=== PATIENT | female | born 1940 | race American Indian/Alaskan Native ===

== ENCOUNTER 2018-10-01 18:03 | Emergency (ER) | payer MEDICARE ==
[2018-10-01] MEDS ORDERED: Acetaminophen/HYDROcodone 325-5 MG Tab PO ONE (18:04)
[2018-10-01] MEDS ORDERED: Sodium Chloride 0.9% 500 ML IV ONE (18:24)
[2018-10-01] MEDS: Sodium Chloride 0.9% 10 ML Syringe FLUSH PRN ×4 (18:48→20:51)
[2018-10-01] MEDS ORDERED: Iopamidol 755 Mg/ML 75 ML Bottle IV ONE (19:04)
[2018-10-01] MEDS ORDERED: Ondansetron 4 MG/2 ML SDV IVPUSH ONE (20:28)
[2018-10-01] MEDS ORDERED: Nitrofurantoin Monohydrate/Macrocrystalline 100 MG Cap PO ONE (20:29)
[2018-10-01] MEDS ORDERED: Morphine 2 MG/ML Syringe ONE (20:38)
[2018-10-01] MEDS: Morphine 2 MG/ML Syringe IVPUSH PRN ×2 (20:42→20:50)
--- NOTE | 2018-10-01 20:50 | EDM.PDOC ---
ED HPI GENERAL MEDICAL PROBLEM - General Chief Complaint: Back Pain or Injury Stated Complaint: FALL Time Seen by Provider: 10/01/18 18:20 Source of Information: Reports: Patient History Limitations: Reports: No Limitations - History of Present Illness INITIAL COMMENTS - FREE TEXT/NARRATIVE: 78-year-old female who reports that she was standing on a chair to turn on a fan and when she stepped off she tried to avoid hitting her cat and fell landing on her right buttock and back. She is unaware of whether she hit her head or not area she has no headache. She does have some posterior neck pain but this is nature. Her primary pain is in her buttock and lower back area. She has no abdominal pain. She has no trouble breathing. She felt well prior to this occurring. There was no weakness or dizziness. There was no loss of consciousness. She does report the pain in her buttock is a constant aching pain she rates as an 8-10/10 the pain in her lower lumbar area on the right side and the lower midline back. There are sharp spikes in the pain with movement or palpation. There is no arm or leg weakness. There are no other associated signs or symptoms. There are no other modifying factors. Onset: Today (5:30 PM) Duration: Constant Location: Reports: Back (Right buttock and pelvis as well) Quality: Reports: Ache, Sharp Severity: Moderate (to severe) Improves with: Reports: None Worsens with: Reports: Movement Associated Symptoms: Reports: No Other Symptoms Treatments [employer]: Reports: Other (see below) (Nothing here) right butt Pain Score (Numeric/FACES): 10 - Related Data Allergies Allergy/AdvReac Type Severity Reaction Status Date / Time No Known Allergies Allergy Verified 10/01/18 19:49 Home Meds: Home Meds Aspirin [Grey Chewable Aspirin] 81 mg PO DAILY 02/12/13 [History] Propranolol [Inderal LA] 120 mg PO DAILY 02/12/13 [History] buPROPion [Wellbutrin] 75 mg PO BID PRN 02/12/13 [History] hydroCHLOROthiazide [Hydrochlorothiazide] 25 mg PO DAILY 02/12/13 [History] metFORMIN [Glucophage] 500 mg PO BIDM 02/12/13 [History] Calcium Citrate/Vitamin D3 [[place] Calcium D (200 MG Calcium)] 1 tab PO BID 10/22 [History] Clobetasol [Clobetasol 0.05%] 30 gm .XX DAILY PRN 06/15/13 [History] Dibucaine [Nupercainal 1% Oint] 30 gm TP ASDIRECTED PRN 06/15/13 [History] Multivitamin [Multivitamins] 1 each PO DAILY 06/15/13 [History] Ondansetron [Zofran ODT] 4 mg PO Q6H PRN 06/15/13 [History] Polyethylene Glycol 3350 [Miralax] 17 gm PO ASDIRECTED PRN 06/15/13 [History] Diclofenac Sodium [Voltaren] 4 gm TOP QID 12/05/15 [History] Nitrofurantoin Monohyd/M-Cryst [Macrobid 100 mg Capsule] 100 mg PO BID 7 Days # 14 capsule 10/01/18 [Rx] Warfarin Sodium [Jantoven] 7.5 mg PO MOWEFR 10/01/18 [History] Warfarin Sodium [Jantoven] 10 mg PO SUTUTHSA 10/01/18 [History] Past Medical History HEENT History: Reports: Cataract Cardiovascular History: Reports: High Cholesterol, Hypertension, Other (See Below) Other Cardiovascular History: SENILE NUCLEAR SCLEROSIS Respiratory History: Reports: Other (See Below) Other Respiratory History: LUNG CANCER, ALLERGIC RHINITIS Gastrointestinal History: Reports: GERD, Other (See Below) Other Gastrointestinal History: IRWIN'S ESOPHAGUS Genitourinary History: Reports: Urinary Incontinence Musculoskeletal History: Reports: Other (See Below) Other Musculoskeletal History: CHRONIC PAIN SYNDROME, 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 Psychiatric History: Reports: Anxiety, Depression Endocrine/Metabolic History: Reports: Diabetes, Type II Hematologic History: Reports: Anemia Oncologic (Cancer) History: Reports: Lung Other Oncologic History: RIGHT LUNG REMOVAL - Infectious Disease History Infectious Disease History: Reports: Measles, Mumps - Past Surgical History Respiratory Surgical History: Reports: Pneumonectomy (Right pneumonectomy) GI Surgical History: Reports: Colonoscopy, EGD, Hernia, Abdominal, Sarah Fundoplication Female Surgical History: Reports: Breast Biopsy, Hysterectomy, Salpingo- Oophorectomy Oncologic Surgical History: Reports: Biopsy of Breast Social & Family History - Family History Family Medical History: Noncontributory - Tobacco Use Smoking Status *Q: Current Every Day Smoker Years of Tobacco use: 60 Packs/Tins Daily: 1 - Alcohol Use Alcohol Use History: No - Living Situation & Occupation Occupation: Retired Social History Comment: Lives by herself. ED ROS GENERAL - Review of Systems Review Of Systems: See Below Constitutional: Reports: No Symptoms HEENT: Reports: No Symptoms Respiratory: Reports: Shortness of Breath (Chronic), Cough (Chronic) Cardiovascular: Reports: No Symptoms GI/Abdominal: Reports: No Symptoms : Reports: No Symptoms, Incontinence (But this is chronic) Musculoskeletal: Reports: Back Pain, Other (Pelvis and right buttock pain) Skin: Reports: No Symptoms Neurological: Reports: No Symptoms Hematologic/Lymphatic: Reports: Easy Bruising (On chronic anticoagulation with Coumadin) Immunologic: Reports: Pollen Allergy ED EXAM,LOWER BACK PAIN/INJURY - Physical Exam Exam: See Below Exam Limited By: No Limitations General Appearance: Alert, WD/WN, Moderate Distress Eye Exam: Bilateral Eye: EOMI, Normal Inspection, PERRL Ears: Normal External Exam Nose: Normal Inspection, Normal Mucosa, No Blood Throat/Mouth: Normal Inspection, Normal Oropharynx, Normal Voice, No Airway Compromise Head: Atraumatic Neck: Normal Inspection, Full Range of Motion, Tender Midline (Mild tenderness in the midline) Respiratory/Chest: No Respiratory Distress, No Accessory Muscle Use, Chest Non- Tender Cardiovascular: Normal Peripheral Pulses, Regular Rate, Rhythm, No JVD GI/Abdominal: Normal Bowel Sounds, Soft, Non-Tender, No Mass Back Exam: Normal Inspection, Vertebral Tenderness (In the lower lumbar area. She also has pain over her right buttock area) Extremities: Normal Inspection, Normal Range of Motion, Non-Tender, No Pedal Edema, Normal Capillary Refill Neurological: Alert, Normal Mood/Affect, Normal Dorsiflexion, CN II-XII Intact, Normal Plantar Flexion, No Motor/Sensory Deficits Skin Exam: Warm, Dry, Intact, Normal Color, No Rash Course - Vital Signs Last Recorded V/S: Last Vital Signs Temp 36.1 C 10/01/18 18:03 Pulse 77 10/01/18 18:03 Resp 18 10/01/18 18:03 BP 133/98 H 10/01/18 18:03 Pulse Ox 95 10/01/18 18:03 - Orders/Labs/Meds Orders: Active Orders 24 hr Category Date Time Status Abdomen Pelvis w Cont [CT] Stat Exams 10/01/18 18:18 Taken Cervical Spine wo Cont [CT] Stat Exams 10/01/18 18:18 Taken Chest 1V Frontal [CR] Stat Exams 10/01/18 18:18 Taken Head wo Cont [CT] Stat Exams 10/01/18 18:18 Taken Lumbar Spine wo Cont [CT] Stat Exams 10/01/18 18:18 Taken CULTURE URINE [RM] Stat Lab 10/01/18 20:18 Ordered Morphine Med 10/01/18 20:28 Active 2 mg IVPUSH Q5M PRN Sodium Chloride 0.9% [Saline Flush] Med 10/01/18 18:18 Active 10 ml FLUSH ASDIRECTED PRN Peripheral IV Insertion Adult [OM.PC] Routine Oth 10/01/18 18:18 Ordered Medication Orders Morphine Sulfate (Morphine) 2 mg IVPUSH Q5M PRN PRN Reason: Moderate to severe pain Sodium Chloride (Saline Flush) 10 ml FLUSH ASDIRECTED PRN PRN Reason: Keep Vein Open Last Admin: 10/01/18 18:48 Dose: 10 ml Labs: Laboratory Tests 10/01/18 10/01/18 10/01/18 Range/Units 18:35 18:35 18:35 WBC 8.3 (4.5-12.0) X10-3/uL RBC 3.89 (3.23-5.20) x10(6)uL Hgb 10.4 L (11.5-15.5) g/dL Hct 32.0 (30.0-51.3) % MCV 82.3 (80-96) fL MCH 26.9 L (27.7-33.6) pg MCHC 32.6 (32.2-35.4) g/dL RDW 17.6 H (11.5-15.5) % Plt Count 366 (125-369) X10(3)uL MPV 7.8 (7.4-10.4) fL Neut % (Auto) 68.8 (46-82) % Lymph % (Auto) 22.2 (13-37) % [place] % (Auto) 5.9 (4-12) % Eos % (Auto) 3 (1.0-5.0) % Baso % (Auto) 0 (0-2) % Neut # (Auto) 5.8 (1.6-8.3) # Lymph # (Auto) 1.8 (0.6-5.0) # [place] # (Auto) 0.5 (0.0-1.3) # Eos # (Auto) 0.2 (0.0-0.8) # Baso # (Auto) 0.0 (0.0-0.2) # PT 19.3 H (8.7-11.1) INR 2.00 H (0.89-1.13) Sodium 139 (135-145) mmol/L Potassium 3.8 (3.5-5.3) mmol/L Chloride 102 (100-110) mmol/L Carbon Dioxide 26 (21-32) mmol/L BUN 24 H (7-18) mg/dL Creatinine 0.9 (0.55-1.02) mg/dL Est Cr Clr Drug Dosing TNP Estimated GFR (MDRD) > 60 (>60) BUN/Creatinine Ratio 26.7 H (9-20) Glucose 95 (80-116) mg/dL Calcium 8.5 L (8.6-10.2) mg/dL Total Bilirubin 0.3 (0.1-1.3) mg/dL AST 21 (5-25) IU/L ALT 23 (12-36) U/L Alkaline Phosphatase 110 (56-112) IU/L Total Protein 6.8 (6.0-8.0) g/dL Albumin 3.8 (3.2-4.6) g/dL Globulin 3.0 g/dL Albumin/Globulin Ratio 1.3 Urine Color (YELLOW) Urine Appearance (CLEAR) Urine pH (5.0-6.5) Ur Specific [place] (1.010-1.025) Urine Protein (NEGATIVE) mg/dL Urine Glucose (UA) (NORMAL) mg/dL Urine Ketones (NEGATIVE) mg/dL Urine Occult Blood (NEGATIVE) Urine Nitrite (NEGATIVE) Urine Bilirubin (NEGATIVE) Urine Urobilinogen (NEGATIVE) mg/dL Ur Leukocyte Esterase (NEGATIVE) Urine RBC (0-5) Urine WBC (0-5) Ur Squamous Epith Cells (NS,R,O) Urine Bacteria (NS) 10/01/18 Range/Units 18:40 WBC (4.5-12.0) X10-3/uL RBC (3.23-5.20) x10(6)uL Hgb (11.5-15.5) g/dL Hct (30.0-51.3) % MCV (80-96) fL MCH (27.7-33.6) pg MCHC (32.2-35.4) g/dL RDW (11.5-15.5) % Plt Count (125-369) X10(3)uL MPV (7.4-10.4) fL Neut % (Auto) (46-82) % Lymph % (Auto) (13-37) % [place] % (Auto) (4-12) % Eos % (Auto) (1.0-5.0) % Baso % (Auto) (0-2) % Neut # (Auto) (1.6-8.3) # Lymph # (Auto) (0.6-5.0) # [place] # (Auto) (0.0-1.3) # Eos # (Auto) (0.0-0.8) # Baso # (Auto) (0.0-0.2) # PT (8.7-11.1) INR (0.89-1.13) Sodium (135-145) mmol/L Potassium (3.5-5.3) mmol/L Chloride (100-110) mmol/L Carbon Dioxide (21-32) mmol/L BUN (7-18) mg/dL Creatinine (0.55-1.02) mg/dL Est Cr Clr Drug Dosing Estimated GFR (MDRD) (>60) BUN/Creatinine Ratio (9-20) Glucose (80-116) mg/dL Calcium (8.6-10.2) mg/dL Total Bilirubin (0.1-1.3) mg/dL AST (5-25) IU/L ALT (12-36) U/L Alkaline Phosphatase (56-112) IU/L Total Protein (6.0-8.0) g/dL Albumin (3.2-4.6) g/dL Globulin g/dL Albumin/Globulin Ratio Urine Color Yellow (YELLOW) Urine Appearance Slightly cloudy (CLEAR) Urine pH 5.0 (5.0-6.5) Ur Specific [place] 1.015 (1.010-1.025) Urine Protein Negative (NEGATIVE) mg/dL Urine Glucose (UA) Normal (NORMAL) mg/dL Urine Ketones Negative (NEGATIVE) mg/dL Urine Occult Blood Negative (NEGATIVE) Urine Nitrite Positive H (NEGATIVE) Urine Bilirubin Negative (NEGATIVE) Urine Urobilinogen Normal (NEGATIVE) mg/dL Ur Leukocyte Esterase Negative (NEGATIVE) Urine RBC 0-5 (0-5) Urine WBC 5-10 H (0-5) Ur Squamous Epith Cells Occasional (NS,R,O) Urine Bacteria Many H (NS) Meds: Medications Generic Name Dose Route Start Last Admin Trade Name Freq PRN Reason Stop Dose Admin Morphine Sulfate 2 mg 10/01/18 20:28 Morphine IVPUSH Q5M PRN Moderate to severe pain Sodium Chloride 10 ml 10/01/18 18:18 10/01/18 18:48 Saline Flush FLUSH 10 ml ASDIRECTED PRN Administration Keep Vein Open Discontinued Medications Generic Name Dose Route Start Last Admin Trade Name Freq PRN Reason Stop Dose Admin Sodium Chloride 500 mls @ 999 mls/hr 10/01/18 18:24 10/01/18 18:48 Normal Saline IV 10/01/18 18:54 999 mls/hr .BOLUS ONE Administration Iopamidol 75 ml 10/01/18 19:04 10/01/18 19:24 Isovue-370 (76%) IV 10/01/18 19:05 49 ml ONETIME ONE Administration Morphine Sulfate Confirm 10/01/18 20:38 Morphine Administered 10/01/18 20:39 Dose 2 mg .ROUTE .STK-MED ONE Nitrofurantoin Macrocrystals 100 mg 10/01/18 20:29 Macrobid PO 10/01/18 20:30 ONETIME ONE Ondansetron HCl 4 mg 10/01/18 20:28 Zofran IVPUSH 10/01/18 20:29 ONETIME ONE - Radiology Interpretation Free Text/Narrative:: CT of head showed no acute abnormality per the radiologist CT scan of cervical spine show no acute abnormalities per the radiologist CT scan of the abdomen and pelvis showed no acute abnormalities per the radiologist. Specifically there were no pelvic fractures or right hip fracture. There were some nodules in the left lower lung. CT scan of the lumbar spine showed a 50% L1 compression fracture that was age indeterminate per the radiologist. The patient has no pain with palpation over this area and she gives a history of a lumbar compression fracture which is probably this L1 compression fracture. Portal chest x-ray showed no acute abnormality. He is status post right pneumonectomy. This is per the radiologist. - Re-Assessments/Exams Free Text/Narrative Re-Assessment/Exam: 10/01/18 20:40: Patient is still in pain and would like something for pain at this point. The CTs Showed no evidence of acute fracture in her pelvis or right hip or lumbar spine. Her lab tests are reassuring. She does appear to have a urinary tract infection. The patient will be treated with doses of morphine and we will try to ambulate her with a walker (she has a walker and a wheelchair at home). The patient will also be given Macrobid 100 mg by mouth to begin treatment of a urine infection. She has remained vitally and neurologically stable in the emergency department. 10/01/18 21:15: After 2 doses of morphine, she is able to ambulate with assistance. She feels ready for discharge. I will plan on sending the patient home with a starter pack of hydrocodone that she can take for more severe pain. She can continue to take her Aleve. I am also placing the patient on Macrobid for UTI. She should use a walker at home for ambulation Departure - Departure Time of Disposition: 21:20 Disposition: Home, Self-Care 01 Condition: Good Clinical Impression: Contusion of lower back and pelvis, initial encounter, Long-term (current) use of anticoagulants, INR goal 2.0-3.0 Fall from chair Qualifiers: Encounter type: initial encounter Qualified Code(s): W07.XXXA - Fall from chair , initial encounter Contusion, buttock Qualifiers: Encounter type: initial encounter Qualified Code(s): S30.0XXA - Contusion of lower back and pelvis, initial encounter UTI (urinary tract infection) Qualifiers: Urinary tract infection type: site unspecified Hematuria presence: without hematuria Qualified Code(s): N39.0 - Urinary tract infection, site not specified - Discharge Information Prescriptions: Nitrofurantoin Monohyd/M-Cryst [Macrobid 100 mg Capsule] 100 mg PO BID 7 Days # 14 capsule Referrals: PCP,None [Primary Care Provider] - Forms: ED Department Discharge Additional Instructions: Your blood tests were reassuring. Your INR was 2.0. Your urine test showed some evidence of a urinary tract infection. The CT scan of your head, neck and abdomen and pelvis showed no acute fractures or bleeding or any other acute abnormalities. The CT scan of your lumbar spine showed a compression fracture of your first lumbar vertebra that is probably the old fracture that you were aware of. There did not appear to be any fracture in your hip or pelvis. Ambulate as tolerated with your walker. You may take Aleve as needed for your pain. Medication as prescribed for more severe pain (hydrocodone 5/325). I am also placing you on Macrobid to treat for a urinary tract infection. You should increase your fluid intake. Ambulate as tolerated with your walker. Back to the emergency department for abdominal pain, vomiting, fever, marked increase in your pain or any other concerning sign or symptom. - My Orders Last 24 Hours: My Active Orders 10/01/18 18:18 Abdomen Pelvis w Cont [CT] Stat Cervical Spine wo Cont [CT] Stat Chest 1V Frontal [CR] Stat Head wo Cont [CT] Stat Lumbar Spine wo Cont [CT] Stat Sodium Chloride 0.9% [Saline Flush] 10 ml FLUSH ASDIRECTED PRN Peripheral IV Insertion Adult [OM.PC] Routine 10/01/18 20:18 CULTURE URINE [RM] Stat 10/01/18 20:28 Morphine 2 mg IVPUSH Q5M PRN - Assessment/Plan Last 24 Hours: My Active Orders 10/01/18 18:18 Abdomen Pelvis w Cont [CT] Stat Cervical Spine wo Cont [CT] Stat Chest 1V Frontal [CR] Stat Head wo Cont [CT] Stat Lumbar Spine wo Cont [CT] Stat Sodium Chloride 0.9% [Saline Flush] 10 ml FLUSH ASDIRECTED PRN Peripheral IV Insertion Adult [OM.PC] Routine 10/01/18 20:18 CULTURE URINE [RM] Stat 10/01/18 20:28 Morphine 2 mg IVPUSH Q5M PRN
[2018-10-01 22:37] VITALS: BP 104/53
== END 2018-10-01 21:40 | disposition home or self-care (01) ==
LOC: FB.ED 18:03
DX: S30.0XXA Contusion of lower back and pelvis, initial encounter (principal); N39.0 Urinary tract infection, site not specified; W07.XXXA Fall from chair, initial encounter; Z79.01 Long term (current) use of anticoagulants
CPT/HCPCS: 36415; 51701; 70450; 71045; 72125; 72131; 74177; 80053; 81001; 85025; 85610; 87086; 87088; 87186; 96361; 96374; 96375; 99284; A9270; J2270; J2405; J7040; Q9967

== ENCOUNTER 2019-04-12 07:59 | Inpatient (IN) | payer MEDICARE ==
--- NOTE | 2019-04-12 08:20 | EDM.PDOC ---
ED HPI GENERAL MEDICAL PROBLEM - General Chief Complaint: General Stated Complaint: WEAKNESS Time Seen by Provider: 04/12/19 08:00 Source of Information: Reports: Patient, EMS, Old Records History Limitations: Reports: Physical Impairment - History of Present Illness INITIAL COMMENTS - FREE TEXT/NARRATIVE: Lucille comes into [facility] ED by EMS with sxs of progressive weakness over the past few days, black tarry stools, and some SOB. She lives alone, obtains health care from the [facility] system, and has not seen a HCP since last ED visit her on 10/01/18. At that time, she was evaluated for a fall, and spiculated lesions x 2 noted in L lower lung field. She has prior R total pneumonectomy for CA Lung. Her Hgb 10.4 has droppeed to 6.9 today. SFOB is pos. She will be TxM for blood transfusions and admitted, hospitalist notified. - Related Data Allergies Allergy/AdvReac Type Severity Reaction Status Date / Time No Known Allergies Allergy Verified 10/01/18 19:49 Home Meds: Home Meds Aspirin [Grey Chewable Aspirin] 81 mg PO DAILY 02/12/13 [History] Propranolol [Inderal LA] 120 mg PO DAILY 02/12/13 [History] hydroCHLOROthiazide [Hydrochlorothiazide] 25 mg PO DAILY 02/12/13 [History] metFORMIN [Glucophage] 500 mg PO DAILY 02/12/13 [History] Calcium Citrate/Vitamin D3 [[place] Calcium D (200 MG Calcium)] 1 tab PO BID 10/22 [History] Clobetasol [Clobetasol 0.05%] 30 gm .XX DAILY PRN 06/15/13 [History] Multivitamin [Multivitamins] 1 each PO DAILY 06/15/13 [History] Ondansetron [Zofran ODT] 4 mg PO Q6H PRN 06/15/13 [History] Diclofenac Sodium [Voltaren] 4 gm TOP QID 12/05/15 [History] Acetaminophen [Tylenol] 325 mg PO ASDIRECTED 10/01/18 [History] Naproxen Sodium [Aleve] 220 mg PO ASDIRECTED 10/01/18 [History] Nitrofurantoin Monohyd/M-Cryst [Macrobid 100 mg Capsule] 100 mg PO BID 7 Days # 14 capsule 10/01/18 [Rx] Warfarin Sodium [Jantoven] 7.5 mg PO MOWEFR 10/01/18 [History] Warfarin Sodium [Jantoven] 10 mg PO SUTUTHSA 10/01/18 [History] Past Medical History HEENT History: Reports: Cataract Cardiovascular History: Reports: Afib, High Cholesterol, Hypertension, Other ( See Below) Respiratory History: Reports: Other (See Below) Other Respiratory History: LUNG CANCER, ALLERGIC RHINITIS Gastrointestinal History: Reports: GERD, Other (See Below) Other Gastrointestinal History: IRWIN'S ESOPHAGUS Genitourinary History: Reports: Urinary Incontinence [employer] History: Reports: Musculoskeletal History: Reports: Other (See Below) Other Musculoskeletal History: CHRONIC PAIN SYNDROME, 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 Psychiatric History: Reports: Anxiety, Depression Endocrine/Metabolic History: Reports: Diabetes, Type II Other Endocrine/Metabolic History: DYSTHYMIC DISORDER Hematologic History: Reports: Anemia Immunologic History: Reports: None Oncologic (Cancer) History: Reports: Lung Other Oncologic History: RIGHT LUNG REMOVAL - Infectious Disease History Infectious Disease History: Reports: Measles, Mumps - Past Surgical History Respiratory Surgical History: Reports: Pneumonectomy (Right pneumonectomy) GI Surgical History: Reports: Colonoscopy, EGD, Hernia, Abdominal, Sarah Fundoplication Female Surgical History: Reports: Breast Biopsy, Hysterectomy, Salpingo- Oophorectomy Oncologic Surgical History: Reports: Biopsy of Breast Social & Family History - Family History Family Medical History: Noncontributory - Living Situation & Occupation Occupation: Retired ED ROS GENERAL - Review of Systems Review Of Systems: Unable To Obtain Reason Not Obtained: lethargy ED EXAM, GENERAL - Physical Exam Exam: See Below Exam Limited By: Physical Impairment (lethargy) General Appearance: WD/WN, Lethargic, Thin, Other (pallor) Eye Exam: Bilateral Eye: EOMI, Normal Inspection, PERRL Ears: Normal External Exam Nose: Normal Inspection, No Blood Throat/Mouth: No Airway Compromise, Other (edentulous) Head: Normocephalic Neck: Normal Inspection, Supple, Non-Tender Respiratory/Chest: No Respiratory Distress, Chest Non-Tender, Decreased Breath Sounds (R side absent; decreased L side), Prolonged Expiration Cardiovascular: Regular Rate, Rhythm, No Murmur GI/Abdominal: Normal Bowel Sounds, Soft, Non-Tender, No Organomegaly, No Distention, No Mass (Female) Exam: Deferred Rectal (Female) Exam: Deferred Back Exam: Normal Inspection Extremities: Pallor Neurological: CN II-XII Intact, No Motor/Sensory Deficits, Inattentive, Slow to Respond Psychiatric: Flat Affect Skin Exam: Intact, Ecchymosis, Pallor Lymphatic: No Adenopathy Course - Vital Signs Text/Narrative:: Initial assessment noted tarry stool, SFOB pos; Hgb 6.9 gm%, PT >100; case discussed with Hospitalist, and she will be admitted. I have ordered TxM 2 units of PRBC, Vit K 5 mg IV, and IV fluids. I am also aware of spiculated nodules in L lung that were detected on prior ED visit October 01, 2018 that remain present and require further assessment. Last Recorded V/S: Last Vital Signs Temp 36.4 C 04/12/19 10:04 Pulse 113 H 04/12/19 10:04 Resp 30 H 04/12/19 10:04 BP 120/68 04/12/19 10:04 Pulse Ox 100 04/12/19 10:04 - Orders/Labs/Meds Orders: Active Orders 24 hr Category Date Time Status Chest 1V Frontal [CR] Stat Exams 04/12/19 08:21 Taken PATIENT RETYPE [BBK] Stat Lab 04/12/19 09:45 Results RED BLOOD CELLS LP [BBK] Stat Lab 04/12/19 09:45 Results TYPE AND SCREEN [BBK] Stat Lab 04/12/19 09:45 Results Dextrose 5%-Lactated Ringers 1,000 ml Med 04/12/19 08:30 Active IV ASDIRECTED Sodium Chloride 0.9% [Normal Saline] 250 ml Med 04/12/19 09:30 Active IV ASDIRECTED Sodium Chloride 0.9% [Saline Flush] Med 04/12/19 08:21 Active 10 ml FLUSH ASDIRECTED PRN Peripheral IV Insertion Adult [OM.PC] Routine Oth 04/12/19 08:21 Ordered Transfuse PRBC [Transfuse Red Blood Cells] [COMM] Stat Oth 04/12/19 09:19 Ordered EKG 12 Lead [EK] Routine Ther 04/12/19 08:21 Stop Req Medication Orders Dextrose/Lactated Ringer's (Dextrose 5%-Lactated Ringers) 1,000 mls @ 500 mls/ hr IV ASDIRECTED CHUCK Last Admin: 04/12/19 08:40 Dose: 500 mls/hr Sodium Chloride (Normal Saline) 250 mls @ 100 mls/hr IV ASDIRECTED CHUCK Nicotine (Habitrol) 14 mg TRDERM Q24H CHUCK Sodium Chloride (Saline Flush) 10 ml FLUSH ASDIRECTED PRN PRN Reason: Keep Vein Open Labs: Laboratory Tests 04/12/19 04/12/19 04/12/19 Range/Units 08:45 08:45 08:45 WBC 12.5 H (4.5-12.0) X10-3/uL RBC 2.33 L (3.23-5.20) x10(6)uL Hgb 6.9 L* D (11.5-15.5) g/dL Hct 21.2 L* D (30.0-51.3) % MCV 90.8 (80-96) fL MCH 29.5 (27.7-33.6) pg MCHC 32.5 (32.2-35.4) g/dL RDW 15.1 (11.5-15.5) % Plt Count 505 H (125-369) X10(3)uL MPV 7.1 L (7.4-10.4) fL Add Manual Diff Yes Neutrophils % (Manual) 90 H (46-82) % Lymphocytes % (Manual) 10 L (13-37) % Macrocytosis Occasional PT (8.7-11.1) INR Sodium 140 (135-145) mmol/L Potassium 3.4 L (3.5-5.3) mmol/L Chloride 101 (100-110) mmol/L Carbon Dioxide 25 (21-32) mmol/L BUN 41 H D (7-18) mg/dL Creatinine 0.7 (0.55-1.02) mg/dL Est Cr Clr Drug Dosing TNP Estimated GFR (MDRD) > 60 (>60) BUN/Creatinine Ratio 58.6 H (9-20) Glucose 223 H D (80-116) mg/dL Calcium 8.8 (8.6-10.2) mg/dL Total Bilirubin 0.5 (0.1-1.3) mg/dL AST 14 D (5-25) IU/L ALT 12 D (12-36) U/L Alkaline Phosphatase 67 (56-112) IU/L Troponin I < 0.017 L (<0.017-0.056) ng/mL Total Protein 6.7 (6.0-8.0) g/dL Albumin 3.1 L (3.2-4.6) g/dL Globulin 3.6 g/dL Albumin/Globulin Ratio 0.9 TSH, Ultra Sensitive 0.37 (0.36-3.74) IU/mL Urine Color (YELLOW) Urine Appearance (CLEAR) Urine pH (5.0-6.5) Ur Specific [employer] (1.010-1.025) Urine Protein (NEGATIVE) mg/dL Urine Glucose (UA) (NORMAL) mg/dL Urine Ketones (NEGATIVE) mg/dL Urine Occult Blood (NEGATIVE) Urine Nitrite (NEGATIVE) Urine Bilirubin (NEGATIVE) Urine Urobilinogen (NEGATIVE) mg/dL Ur Leukocyte Esterase (NEGATIVE) Urine RBC (0-5) Urine WBC (0-5) Ur Squamous Epith Cells (NS,R,O) Urine Bacteria (NS) 04/12/19 04/12/19 Range/Units 08:45 09:07 WBC (4.5-12.0) X10-3/uL RBC (3.23-5.20) x10(6)uL Hgb (11.5-15.5) g/dL Hct (30.0-51.3) % MCV (80-96) fL MCH (27.7-33.6) pg MCHC (32.2-35.4) g/dL RDW (11.5-15.5) % Plt Count (125-369) X10(3)uL MPV (7.4-10.4) fL Add Manual Diff Neutrophils % (Manual) (46-82) % Lymphocytes % (Manual) (13-37) % Macrocytosis PT > 100.0 H* (8.7-11.1) INR TNP Sodium (135-145) mmol/L Potassium (3.5-5.3) mmol/L Chloride (100-110) mmol/L Carbon Dioxide (21-32) mmol/L BUN (7-18) mg/dL Creatinine (0.55-1.02) mg/dL Est Cr Clr Drug Dosing Estimated GFR (MDRD) (>60) BUN/Creatinine Ratio (9-20) Glucose (80-116) mg/dL Calcium (8.6-10.2) mg/dL Total Bilirubin (0.1-1.3) mg/dL AST (5-25) IU/L ALT (12-36) U/L Alkaline Phosphatase (56-112) IU/L Troponin I (<0.017-0.056) ng/mL Total Protein (6.0-8.0) g/dL Albumin (3.2-4.6) g/dL Globulin g/dL Albumin/Globulin Ratio TSH, Ultra Sensitive (0.36-3.74) IU/mL Urine Color Yellow (YELLOW) Urine Appearance Clear (CLEAR) Urine pH 5.0 (5.0-6.5) Ur Specific [employer] 1.020 (1.010-1.025) Urine Protein Negative (NEGATIVE) mg/dL Urine Glucose (UA) Normal (NORMAL) mg/dL Urine Ketones 50 H (NEGATIVE) mg/dL Urine Occult Blood Trace (NEGATIVE) Urine Nitrite Negative (NEGATIVE) Urine Bilirubin Negative (NEGATIVE) Urine Urobilinogen Normal (NEGATIVE) mg/dL Ur Leukocyte Esterase Negative (NEGATIVE) Urine RBC 0-5 (0-5) Urine WBC 0-5 (0-5) Ur Squamous Epith Cells Occasional (NS,R,O) Urine Bacteria Many H (NS) Meds: Medications Generic Name Dose Route Start Last Admin Trade Name Freq PRN Reason Stop Dose Admin Dextrose/Lactated Ringer's 1,000 mls @ 500 mls/hr 04/12/19 08:30 04/12/19 08: 40 Dextrose 5%-Lactated Ringers IV 500 mls/hr ASDIRECTED CHUCK Administration Sodium Chloride 250 mls @ 100 mls/hr 04/12/19 09:30 Normal Saline IV ASDIRECTED CHUCK Nicotine 14 mg 04/12/19 11:00 Habitrol TRDERM Q24H CHUCK Sodium Chloride 10 ml 04/12/19 08:21 Saline Flush FLUSH ASDIRECTED PRN Keep Vein Open Discontinued Medications Generic Name Dose Route Start Last Admin Trade Name Freq PRN Reason Stop Dose Admin Phytonadione 5 mg/ Sodium 50.5 mls @ 100 mls/hr 04/12/19 09:23 04/12/19 09:58 Chloride IV 04/12/19 09:53 100 mls/hr NOW ONE Administration Influenza Virus Vaccine 60 mcg 04/12/19 11:00 Fluzone Quad [id number] Syringe IM 04/12/19 11:01 .ONCE ONE Departure - Departure Time of Disposition: 11:07 Disposition: Admitted As Inpatient 68 Condition: Poor Clinical Impression: Gastrointestinal bleeding Qualifiers: GI bleed type/associated pathology: unspecified gastrointestinal hemorrhage type Qualified Code(s): K92.2 - Gastrointestinal hemorrhage, unspecified - Discharge Information *PRESCRIPTION DRUG MONITORING PROGRAM REVIEWED*: Not Applicable *COPY OF PRESCRIPTION DRUG MONITORING REPORT IN PATIENT DAMASO: Not Applicable Sepsis Event Note - Focused Exam Vital Signs: Vital Signs Temp Pulse Resp BP Pulse Ox 04/12/19 08:00 35.3 C 106 H 32 H 95/63 100 Date Exam was Performed: 04/12/19 Time Exam was Performed: 11:07 - Problem List & Annotations (1) Anemia due to blood loss, acute SNOMED Code(s): 323538813 Code(s): D62 - ACUTE POSTHEMORRHAGIC ANEMIA Status: Acute Current Visit: Yes Annotation/Comment:: Admit, type and match PRBC and transfuse, reverse anticoagulation (2) Gastrointestinal bleeding SNOMED Code(s): 41997416 Code(s): K92.2 - GASTROINTESTINAL HEMORRHAGE, UNSPECIFIED Status: Acute Current Visit: Yes Annotation/Comment:: Admit, type and match, transfuse 2 units of PRBC, reverse anticoagulation Qualifiers: GI bleed type/associated pathology: unspecified gastrointestinal hemorrhage type Qualified Code(s): K92.2 - Gastrointestinal hemorrhage, unspecified - Problem List Review Problem List Initiated/Reviewed/Updated: Yes - My Orders Last 24 Hours: My Active Orders 04/12/19 08:21 Chest 1V Frontal [CR] Stat Sodium Chloride 0.9% [Saline Flush] 10 ml FLUSH ASDIRECTED PRN Peripheral IV Insertion Adult [OM.PC] Routine EKG 12 Lead [EK] Routine 04/12/19 08:30 Dextrose 5%-Lactated Ringers 1,000 ml IV ASDIRECTED 04/12/19 09:19 Transfuse PRBC [Transfuse Red Blood Cells] [COMM] Stat 04/12/19 09:30 Sodium Chloride 0.9% [Normal Saline] 250 ml IV ASDIRECTED 04/12/19 09:45 PATIENT RETYPE [BBK] Stat RED BLOOD CELLS LP [BBK] Stat TYPE AND SCREEN [BBK] Stat - Assessment/Plan Last 24 Hours: My Active Orders 04/12/19 08:21 Chest 1V Frontal [CR] Stat Sodium Chloride 0.9% [Saline Flush] 10 ml FLUSH ASDIRECTED PRN Peripheral IV Insertion Adult [OM.PC] Routine EKG 12 Lead [EK] Routine 04/12/19 08:30 Dextrose 5%-Lactated Ringers 1,000 ml IV ASDIRECTED 04/12/19 09:19 Transfuse PRBC [Transfuse Red Blood Cells] [COMM] Stat 04/12/19 09:30 Sodium Chloride 0.9% [Normal Saline] 250 ml IV ASDIRECTED 04/12/19 09:45 PATIENT RETYPE [BBK] Stat RED BLOOD CELLS LP [BBK] Stat TYPE AND SCREEN [BBK] Stat Plan: Admit to InPt, Hospitalist to see today.
[2019-04-12] MEDS ORDERED: Sodium Chloride 0.9% 10 ML Syringe FLUSH PRN (08:21)
[2019-04-12] MEDS ORDERED: Dextrose 5%-Lactated Ringers 1,000 ML IV SCH (08:30)
[2019-04-12] MEDS ORDERED: Phytonadione 5 MG in Sodium Chloride 0.9% 50 ML IV ONE (09:23)
[2019-04-12] MEDS ORDERED: Sodium Chloride 0.9% 250 ML IV SCH (09:30)
[2019-04-12] MEDS ORDERED: FLU Vacc QS2019-20(6MOS+)/PF 60 MCG/0.5 ML SYRINGE IM ONE (11:00)
[2019-04-12] MEDS: Nicotine 14 MG/24 Hr Patch TRDERM SCH (12:49)
--- NOTE | 2019-04-12 15:22 | HP ---
ADMISSION DATE: 04/12/2019 REASON FOR VISIT: GI bleed with anemia of 6.9, complicated weakness. HISTORY OF PRESENT ILLNESS: Lucille Juarez is a 78-year-old female from [place], [place], was admitted through [facility] ER. Presented with 3-day history of complicated fatigue, lethargy, increasing shortness of breath, fatigue, black tarry stools, and general malaise. No history of GI bleed in the past. Most recent ER visit hemoglobin was greater than 10. Admitted for intervention and care. MEDICATIONS: Daily medications include: 1. P.r.n. Tylenol. 2. Aspirin 80 mg one p.o. daily CAD. 3. Calcium plus vitamin D3 one p.o. b.i.d. 4. Clobetasol cream p.r.n. 5. Voltaren gel q.i.d. knee pain. 6. Hydrochlorothiazide 25 mg one p.o. daily blood pressure. 7. Metformin 500 mg 1 p.o. daily NIDDM. 8. Multivitamin one daily. 9. Naproxen sodium 220 four daily p.r.n. 10.Macrobid 100 mg b.i.d. UTI. 11.Zofran 4 mg sublingual p.r.n. nausea and vomiting. 12.Propranolol/Inderal LA 120 one p.o. daily. heart rate control. 13.Warfarin per protocol. ALLERGIES: No known allergies. PAST MEDICAL HISTORY: Significant for: 1. Previous right lung carcinoma. 2. Diabetes mellitus. 3. Hypertension. 4. Atrial fibrillation, now in sinus rhythm. 5. She has had a previous cervical neck fusion and what suspect to be a laparoscopic Sarah fundoplication. SOCIAL HISTORY: Lives alone. . Five children. One son of cancer, 6 grandchildren. Long-term smoker of 40+-pack-year history. No alcohol. No vaping. No illicit drug use. FAMILY HISTORY: Positive for diabetes mellitus, heart disease, and hypertension. REVIEW OF SYSTEMS: CONSTITUTIONAL: Feeling poorly. EYES: Sees well. EARS: Hears well. OROPHARYNX: Poor dentition. GI: Please see HPI. CV: Denies chest pain, palpitations, or syncope. RESPIRATORY: Troublesome shortness of breath. SKIN: No lesions, eruptions, or moles. ENDOCRINE: No excessive thirst or urination. Diabetes on board. Weight stable. PHYSICAL EXAMINATION: VITAL SIGNS: 35.5, 106, 95/63, 32, O2 saturation 100% per exam. GENERAL: Cachectic elderly female, appears older than stated age. HEENT: Funduscopic benign. Conjunctivae clear. Bright tympanic membranes. Decreased hearing. Clear nasal discharge. Mouth and oropharynx clear. Tongue midline. Good gag reflex. No intraoral lesions. NECK: Benign. Surgical scar posterior neck. CHEST: Decreased breath sounds throughout all lung turner. HEART: No ectopy. Soft murmur. ABDOMEN: Benign. No hepatosplenomegaly. AND RECTAL: Deferred. EXTREMITIES: Well perfused. NEUROMUSCULAR: Intact. Gait not tested. ASSESSMENT: Upper gastrointestinal bleed, Coumadin on board. Markedly elevated INR of 100. PLAN: We will reverse the Coumadin with vitamin K 5 mg IV given. Recheck ProTime at 5 o'clock. 1 unit has been ordered per the ER physician, recheck hemoglobin and hematocrit at 7 o'clock. Medications and intervention as appropriate. IV fluids will be continued after IV bolus. We will keep n.p.o., tele consultation with Dr. Farias. /[id number] SOFIA/FABIOLA
--- NOTE | 2019-04-12 15:43 | PCM.CONS ---
H&P History of Present Illness - General Date of Service: 04/12/19 Admit Problem/Dx: Admission Diagnosis/Problem Admission Diagnosis/Problem Bleeding - History of Present Illness Initial Comments - Free Text/Narative: Pt admitted today with a hx of black stools and weakness. Noted to have an elevated PT, INR was note able to be run. She has a hx of black stools as well. Hgb was low. Transfused one unit of PRBC. Given Vit K in the ED. - Related Data Allergies/Adverse Reactions: Allergies Allergy/AdvReac Type Severity Reaction Status Date / Time No Known Allergies Allergy Verified 10/01/18 19:49 Home Medications: Home Meds Propranolol [Inderal LA] 120 mg PO BEDTIME 02/12/13 [History] hydroCHLOROthiazide [Hydrochlorothiazide] 25 mg PO DAILY 02/12/13 [History] metFORMIN [Glucophage] 500 mg PO DAILY 02/12/13 [History] Calcium Citrate/Vitamin D3 [[place] Calcium D (200 MG Calcium)] 1 tab PO BID 10/22 [History] Clobetasol [Clobetasol 0.05%] 1 applic TOP DAILY PRN 06/15/13 [History] Multivitamin [Multivitamins] 1 each PO DAILY 06/15/13 [History] Ondansetron [Zofran ODT] 4 mg PO Q6H PRN 06/15/13 [History] Diclofenac Sodium [Voltaren] 4 gm TOP QID PRN 12/05/15 [History] Acetaminophen [Tylenol] 975 mg PO TID PRN 10/01/18 [History] Naproxen Sodium [Aleve] 440 mg PO TID PRN 10/01/18 [History] Warfarin Sodium [Jantoven] 7.5 mg PO WE 10/01/18 [History] Warfarin Sodium [Jantoven] 10 mg PO SUMOTUTHFRSA 10/01/18 [History] Albuterol [Proventil Neb Soln] 3 ml INH Q4H PRN 04/12/19 [History] Diltiazem [Cardizem CD] 120 mg PO DAILY 04/12/19 [History] Docusate Sodium 100 mg PO BID 04/12/19 [History] Sertraline [Zoloft] 75 mg PO DAILY 04/12/19 [History] Tiotropium [Spiriva HandiHaler] 18 mcg IH DAILY 04/12/19 [History] Past Medical History HEENT History: Reports: Cataract Cardiovascular History: Reports: Afib, High Cholesterol, Hypertension, Other ( See Below) Other Cardiovascular History: SENILE NUCLEAR SCLEROSIS Respiratory History: Reports: Other (See Below) Other Respiratory History: LUNG CANCER, ALLERGIC RHINITIS Gastrointestinal History: Reports: GERD, Other (See Below) Other Gastrointestinal History: IRWIN'S ESOPHAGUS Genitourinary History: Reports: Urinary Incontinence 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: Musculoskeletal History: Reports: Other (See Below) Other Musculoskeletal History: CHRONIC PAIN SYNDROME, 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 Neurological History: Reports: None Psychiatric History: Reports: Anxiety, Depression Endocrine/Metabolic History: Reports: Diabetes, Type II Other Endocrine/Metabolic History: DYSTHYMIC DISORDER Hematologic History: Reports: Anemia Immunologic History: Reports: None Oncologic (Cancer) History: Reports: Lung Other Oncologic History: RIGHT LUNG REMOVAL Dermatologic History: Reports: None - Infectious Disease History Infectious Disease History: Reports: Measles, Mumps - Past Surgical History Respiratory Surgical History: Reports: Pneumonectomy (Right pneumonectomy) GI Surgical History: Reports: Colonoscopy, EGD, Hernia, Abdominal, Sarah Fundoplication Female Surgical History: Reports: Breast Biopsy, Hysterectomy, Salpingo- Oophorectomy Oncologic Surgical History: Reports: Biopsy of Breast Social & Family History - Family History Family Medical History: Noncontributory - Tobacco Use Smoking Status *Q: Current Every Day Smoker Years of Tobacco use: 60 Packs/Tins Daily: 1 Second Hand Smoke Exposure: No - Caffeine Use Caffeine Use: Reports: Coffee, Soda - Recreational Drug Use Recreational Drug Use: No - Living Situation & Occupation Occupation: Retired H&P Review of Systems - Review of Systems: Review Of Systems: See Below General: Reports: Weakness, Fatigue Pulmonary: Reports: No Symptoms Cardiovascular: Reports: No Symptoms Gastrointestinal: Reports: No Symptoms Skin: Reports: No Symptoms Exam - Exam Exam: See Below - Vital Signs Vital Signs: Last Vital Signs Temp 98.0 F 04/12/19 14:50 Pulse 108 H 04/12/19 14:50 Resp 30 H 04/12/19 14:50 BP 119/78 04/12/19 14:50 Pulse Ox 98 04/12/19 14:04 Weight: 43.182 kg - Exam General: Alert, Oriented, Cooperative Neck: Carotid Bruit Lungs: Clear to Auscultation Cardiovascular: Regular Rate GI/Abdominal Exam: Normal Bowel Sounds, Soft, Non-Tender - Patient Data Lab Results Last 24 hrs: Laboratory Results - last 24 hr 04/12/19 04/12/19 04/12/19 Range/Units 08:45 08:45 08:45 WBC 12.5 H (4.5-12.0) X10-3/uL RBC 2.33 L (3.23-5.20) x10(6)uL Hgb 6.9 L* D (11.5-15.5) g/dL Hct 21.2 L* D (30.0-51.3) % MCV 90.8 (80-96) fL MCH 29.5 (27.7-33.6) pg MCHC 32.5 (32.2-35.4) g/dL RDW 15.1 (11.5-15.5) % Plt Count 505 H (125-369) X10(3)uL MPV 7.1 L (7.4-10.4) fL Add Manual Diff Yes Neutrophils % (Manual) 90 H (46-82) % Lymphocytes % (Manual) 10 L (13-37) % Macrocytosis Occasional PT (8.7-11.1) INR Sodium 140 (135-145) mmol/L Potassium 3.4 L (3.5-5.3) mmol/L Chloride 101 (100-110) mmol/L Carbon Dioxide 25 (21-32) mmol/L BUN 41 H D (7-18) mg/dL Creatinine 0.7 (0.55-1.02) mg/dL Est Cr Clr Drug Dosing TNP Estimated GFR (MDRD) > 60 (>60) BUN/Creatinine Ratio 58.6 H (9-20) Glucose 223 H D (80-116) mg/dL Calcium 8.8 (8.6-10.2) mg/dL Total Bilirubin 0.5 (0.1-1.3) mg/dL AST 14 D (5-25) IU/L ALT 12 D (12-36) U/L Alkaline Phosphatase 67 (56-112) IU/L Troponin I < 0.017 L (<0.017-0.056) ng/mL Total Protein 6.7 (6.0-8.0) g/dL Albumin 3.1 L (3.2-4.6) g/dL Globulin 3.6 g/dL Albumin/Globulin Ratio 0.9 TSH, Ultra Sensitive 0.37 (0.36-3.74) IU/mL Urine Color (YELLOW) Urine Appearance (CLEAR) Urine pH (5.0-6.5) Ur Specific [place] (1.010-1.025) Urine Protein (NEGATIVE) mg/dL Urine Glucose (UA) (NORMAL) mg/dL Urine Ketones (NEGATIVE) mg/dL Urine Occult Blood (NEGATIVE) Urine Nitrite (NEGATIVE) Urine Bilirubin (NEGATIVE) Urine Urobilinogen (NEGATIVE) mg/dL Ur Leukocyte Esterase (NEGATIVE) Urine RBC (0-5) Urine WBC (0-5) Ur Squamous Epith Cells (NS,R,O) Urine Bacteria (NS) Blood Type Gel Antibody Screen Crossmatch 04/12/19 04/12/19 04/12/19 Range/Units 08:45 09:07 09:45 WBC (4.5-12.0) X10-3/uL RBC (3.23-5.20) x10(6)uL Hgb (11.5-15.5) g/dL Hct (30.0-51.3) % MCV (80-96) fL MCH (27.7-33.6) pg MCHC (32.2-35.4) g/dL RDW (11.5-15.5) % Plt Count (125-369) X10(3)uL MPV (7.4-10.4) fL Add Manual Diff Neutrophils % (Manual) (46-82) % Lymphocytes % (Manual) (13-37) % Macrocytosis PT > 100.0 H* (8.7-11.1) INR TNP Sodium (135-145) mmol/L Potassium (3.5-5.3) mmol/L Chloride (100-110) mmol/L Carbon Dioxide (21-32) mmol/L BUN (7-18) mg/dL Creatinine (0.55-1.02) mg/dL Est Cr Clr Drug Dosing Estimated GFR (MDRD) (>60) BUN/Creatinine Ratio (9-20) Glucose (80-116) mg/dL Calcium (8.6-10.2) mg/dL Total Bilirubin (0.1-1.3) mg/dL AST (5-25) IU/L ALT (12-36) U/L Alkaline Phosphatase (56-112) IU/L Troponin I (<0.017-0.056) ng/mL Total Protein (6.0-8.0) g/dL Albumin (3.2-4.6) g/dL Globulin g/dL Albumin/Globulin Ratio TSH, Ultra Sensitive (0.36-3.74) IU/mL Urine Color Yellow (YELLOW) Urine Appearance Clear (CLEAR) Urine pH 5.0 (5.0-6.5) Ur Specific [place] 1.020 (1.010-1.025) Urine Protein Negative (NEGATIVE) mg/dL Urine Glucose (UA) Normal (NORMAL) mg/dL Urine Ketones 50 H (NEGATIVE) mg/dL Urine Occult Blood Trace (NEGATIVE) Urine Nitrite Negative (NEGATIVE) Urine Bilirubin Negative (NEGATIVE) Urine Urobilinogen Normal (NEGATIVE) mg/dL Ur Leukocyte Esterase Negative (NEGATIVE) Urine RBC 0-5 (0-5) Urine WBC 0-5 (0-5) Ur Squamous Epith Cells Occasional (NS,R,O) Urine Bacteria Many H (NS) Blood Type O POSITIVE Gel Antibody Screen Negative Crossmatch See Detail Result Diagrams: 04/12/19 08:45 04/12/19 08:45 Master Results Last 24 hrs: Microbiology 04/12/19 09:20 Stool Occult Blood (MASTER) - Final Stool / Feces Sepsis Event Note - Evaluation Sepsis Screening Result: No Definite Risk - Focused Exam Vital Signs: Vital Signs Temp Temp Pulse Resp BP Pulse Ox 04/12/19 14:50 98.0 F 108 H 30 H 119/78 04/12/19 14:04 98.0 F 108 H 30 H 119/78 98 04/12/19 12:02 97.5 F 114 H 32 H 103/64 98 04/12/19 11:38 97.5 F 112 H 30 H 120/68 100 04/12/19 10:04 97.5 F 113 H 30 H 120/68 100 04/12/19 08:00 95.5 F 106 H 32 H 95/63 100 Date Exam was Performed: 04/12/19 Time Exam was Performed: 15:39 Consult PN Assessment/Plan Procedures: Procedures ASSAY OF CREATININE (10/08/13) ASSAY OF TROPONIN QUANT (12/22/15) C-REACTIVE PROTEIN (12/22/15) CHEST X-RAY 2VW FRONTAL&LATL (12/22/15) COLONOSCOPY W/LESION REMOVAL (10/01/13) COMPLETE CBC AUTOMATED (12/22/15) COMPLETE CBC W/AUTO DIFF WBC (10/01/18) COMPREHEN METABOLIC PANEL (10/01/18) CT ABD & PELV W/CONTRAST (10/01/18) CT ANGIOGRAPHY CHEST (12/22/15) CT HEAD/BRAIN W/O DYE (10/01/18) CT LUMBAR SPINE W/O DYE (10/01/18) CT NECK SPINE W/O DYE (10/01/18) CT THORAX W/DYE (10/08/13) EGD BALLOON DIL ESOPH30 MM/> (12/08/15) EGD BIOPSY SINGLE/MULTIPLE (12/08/15) ELECTROCARDIOGRAM TRACING (12/22/15) EMERGENCY DEPT VISIT (10/01/18) FIBRIN DEGRADATION QUANT (12/22/15) HYDRATE IV INFUSION ADD-ON (10/01/18) INSERT BLADDER CATHETER (10/01/18) METABOLIC PANEL TOTAL CA (12/22/15) MICROBE SUSCEPTIBLE MASTER (10/01/18) OFFICE/OUTPATIENT VISIT EST (06/19/14) PROTHROMBIN TIME (10/01/18) PRP I/ZOEY INIT REDUC >5 YR (12/08/15) REAGENT STRIP/BLOOD GLUCOSE (10/01/13) ROUTINE VENIPUNCTURE (10/01/18) SPECIAL STAINS GROUP 1 (10/01/13) SPECIAL STAINS GROUP 2 (10/01/13) THER/PROPH/DIAG INJ IV PUSH (10/01/18) TISSUE EXAM BY PATHOLOGIST (10/01/13) TX/PRO/DX INJ NEW DRUG ADDON (10/01/18) URINALYSIS AUTO W/SCOPE (10/01/18) URINE BACTERIA CULTURE (10/01/18) URINE CULTURE/COLONY COUNT (10/01/18) X-RAY EXAM CHEST 1 VIEW (10/01/18) (1) Gastrointestinal bleeding SNOMED Code(s): 02748143 Code(s): K92.2 - GASTROINTESTINAL HEMORRHAGE, UNSPECIFIED Current Visit: Yes Comment: Admit, type and match, transfuse 2 units of PRBC, reverse anticoagulation Qualifiers: GI bleed type/associated pathology: unspecified gastrointestinal hemorrhage type Qualified Code(s): K92.2 - Gastrointestinal hemorrhage, unspecified Problem List Initiated/Reviewed/Updated: Yes My Orders Last 24 Hours: My Active Orders 04/12/19 15:37 Verify Patient Consent Obtain [RC] ASDIRECTED 04/12/19 Dinner NPO After Midnight [Nothing per Oral After Midnight Diet] [DIET] Plan: EGD in AM. Procedure and risks were explained to the pt to include bleeding, infection, perforation. She expressed understanding and asks us to proceed.
[2019-04-12] MEDS ORDERED: Sodium Chloride 0.9% 1,000 ML IV SCH (18:00)
[2019-04-13] MEDS ORDERED: Lactated Ringers 1,000 ML IV SCH (07:35)
--- NOTE | 2019-04-13 08:18 | PCM.OPNOTE ---
- General Post-Op/Procedure Note Date of Surgery/Procedure: 04/13/19 Operative Procedure(s): egd with cold forcep biopsy Findings: gastritis Pre Op Diagnosis: upper gi bleed Post-Op Diagnosis: gastritis Anesthesia Technique: ANDREW Primary Surgeon: Eulalio Farias Anesthesia Provider: Dante Pacheco Pathology: stomach Complications: None Condition: Fair Free Text/Narrative:: see dictation
[2019-04-13] MEDS ORDERED: Levalbuterol HCl 1.25 MG/3 ML Neb NEB ONE (08:30)
[2019-04-13] MEDS: Pantoprazole 40 MG Tab.CR PO SCH (08:46)
--- NOTE | 2019-04-13 09:29 | PCM.PN ---
- General Info Date of Service: 04/13/19 Subjective Update: Had an EGD this morning.Showed some gastritis Functional Status: Reports: Pain Controlled - Review of Systems HEENT: Reports: No Symptoms Pulmonary: Reports: Cough Cardiovascular: Reports: No Symptoms Gastrointestinal: Reports: No Symptoms Genitourinary: Reports: No Symptoms - Patient Data Vitals - Most Recent: Last Vital Signs Temp 97.7 F 04/13/19 04:00 Pulse 106 H 04/13/19 04:00 Resp 28 H 04/13/19 04:00 BP 128/69 04/13/19 04:00 Pulse Ox 100 04/13/19 04:00 Weight - Most Recent: 43.687 kg I&O - Last 24 Hours: Intake & Output 04/12/19 04/13/19 04/13/19 22:59 06:59 14:59 Intake Total 291 567 Output Total 700 275 Balance -409 292 Lab Results Last 24 Hours: Laboratory Results - last 24 hr 04/12/19 04/12/19 04/12/19 Range/Units 08:23 09:45 17:36 Hgb (11.5-15.5) g/dL Hct (30.0-51.3) % PT (8.7-11.1) INR (0.89-1.13) POC Glucose 234 H 131 H D (80-116) mg/dL Blood Type O POSITIVE Gel Antibody Screen Negative Crossmatch See Detail 04/12/19 04/12/19 04/13/19 Range/Units 17:43 17:43 05:48 Hgb 8.5 L (11.5-15.5) g/dL Hct 25.1 L (30.0-51.3) % PT 15.4 H (8.7-11.1) INR 1.60 H (0.89-1.13) POC Glucose 142 H (80-116) mg/dL Blood Type Gel Antibody Screen Crossmatch Master Results Last 24 Hours: Microbiology 04/12/19 09:20 Stool Occult Blood (MASTER) - Final Stool / Feces Med Orders - Current: Current Medications Dextrose/Lactated Ringer's (Dextrose 5%-Lactated Ringers) 1,000 mls @ 500 mls/ hr IV ASDIRECTED CHUCK Last Admin: 04/12/19 08:40 Dose: 500 mls/hr Sodium Chloride (Normal Saline) 250 mls @ 100 mls/hr IV ASDIRECTED [facility] Sodium Chloride (Normal Saline) 1,000 mls @ 75 mls/hr IV ASDIRECTED [facility] Last Admin: 04/12/19 18:21 Dose: 75 mls/hr Lactated Ringer's (Ringers, Lactated) 1,000 mls @ 125 mls/hr IV ASDIRECTED [facility] Last Admin: 04/13/19 08:53 Dose: 125 mls/hr Nicotine (Habitrol) 14 mg TRDERM Q24H [facility] Last Admin: 04/12/19 12:49 Dose: 14 mg Pantoprazole Sodium (Protonix) 40 mg PO 0600 [facility] Last Admin: 04/13/19 08:46 Dose: 40 mg Sodium Chloride (Saline Flush) 10 ml FLUSH ASDIRECTED PRN PRN Reason: Keep Vein Open Last Admin: 04/13/19 09:08 Dose: 10 ml Discontinued Medications Phytonadione 5 mg/ Sodium (Chloride) 50.5 mls @ 100 mls/hr IV NOW ONE Stop: 04/12/19 09:53 Last Admin: 04/12/19 09:58 Dose: 100 mls/hr Influenza Virus Vaccine (Fluzone Quad [id number] Syringe) 60 mcg IM .ONCE ONE Stop: 04/12/19 11:01 Levalbuterol HCl (Xopenex) 1.25 mg NEB ONETIME ONE Stop: 04/13/19 08:31 Last Admin: 04/13/19 08:46 Dose: 1.25 mg - Exam General: Alert, Oriented Neck: Supple Lungs: Crackles, Rales Cardiovascular: Regular Rate GI/Abdominal Exam: Normal Bowel Sounds, Soft Sepsis Event Note - Evaluation Sepsis Screening Result: No Definite Risk - Focused Exam Vital Signs: Vital Signs Temp Pulse Resp BP Pulse Ox 04/13/19 04:00 97.7 F 106 H 28 H 128/69 100 04/13/19 00:00 98.6 F 102 H 22 H 120/64 100 Date Exam was Performed: 04/13/19 Time Exam was Performed: 15:50 - Problem List & Annotations (1) Pneumonia SNOMED Code(s): 798606755 Code(s): J18.9 - PNEUMONIA, UNSPECIFIED ORGANISM Status: Acute Current Visit: No (2) Gastrointestinal bleeding SNOMED Code(s): 47042498 Code(s): K92.2 - GASTROINTESTINAL HEMORRHAGE, UNSPECIFIED Status: Acute Current Visit: Yes Qualifiers: GI bleed type/associated pathology: unspecified gastrointestinal hemorrhage type Qualified Code(s): K92.2 - Gastrointestinal hemorrhage, unspecified Annotation/Comment:: Admit, type and match, transfuse 2 units of PRBC, reverse anticoagulation (3) Afib SNOMED Code(s): 80397500 Code(s): I48.91 - UNSPECIFIED ATRIAL FIBRILLATION Status: Acute Current Visit: Yes Qualifiers: Atrial fibrillation type: paroxysmal Qualified Code(s): I48.0 - Paroxysmal atrial fibrillation (4) Diabetes type 2, controlled SNOMED Code(s): 22301825, 172790798 Code(s): E11.9 - TYPE 2 DIABETES MELLITUS WITHOUT COMPLICATIONS Status: Acute Current Visit: Yes (5) HTN (hypertension) SNOMED Code(s): 31307171 Code(s): I10 - ESSENTIAL (PRIMARY) HYPERTENSION Status: Acute Current Visit: Yes Qualifiers: Hypertension type: essential hypertension Qualified Code(s): I10 - Essential (primary) hypertension (6) H/O: lung cancer SNOMED Code(s): 553870666, 585135404 Code(s): Z85.118 - PERSONAL HISTORY OF MALIGNANT NEOPLASM OF BRONCHUS AND LUNG Status: Acute Current Visit: Yes (7) Palliative care encounter SNOMED Code(s): 225551800 Code(s): Z51.5 - ENCOUNTER FOR PALLIATIVE CARE Status: Acute Current Visit: Yes (8) Anemia due to blood loss, acute SNOMED Code(s): 467837352 Code(s): D62 - ACUTE POSTHEMORRHAGIC ANEMIA Status: Acute Current Visit: Yes Annotation/Comment:: Admit, type and match PRBC and transfuse, reverse anticoagulation - Problem List Review Problem List Initiated/Reviewed/Updated: Yes - My Orders Last 24 Hours: My Active Orders 04/14/19 05:11 CBC WITH AUTO DIFF [HEME] AM COMPREHENSIVE METABOLIC PN,CMP [CHEM] AM - Plan Plan:: Hgb up to 8.3. PPI ordered. Advance diet. Repeat labs in AM. CT chest to evaluate pneumonia vs Lung cancer. I appreciate Dr Farias input.
[2019-04-13] MEDS: Nicotine 14 MG/24 Hr Patch TRDERM SCH (11:35)
[2019-04-13] MEDS ORDERED: Iopamidol 755 Mg/ML 100 ML Bottle IV ONE (11:58)
--- NOTE | 2019-04-13 11:59 | OR ---
DATE OF OPERATION: 04/13/2019 SURGEON: Eulalio Farias MD PROCEDURE PERFORMED: Esophagogastroduodenoscopy with cold forceps biopsy. PREOPERATIVE DIAGNOSIS: History of upper gastrointestinal bleed. POSTOPERATIVE DIAGNOSIS: Gastritis. INDICATIONS FOR PROCEDURE: This is a 78-year-old white female, who was recently admitted with a markedly elevated PT/INR. She is on Coumadin, had a history of taking not 1, but 2 NSAIDs. She has experienced black tarry stools and weakness. She was offered and accepted an EGD. DESCRIPTION OF OPERATION: After an excellent IV sedation was administered, the bite block was inserted. Flexible endoscope was passed without difficulty down the patient's esophagus into the stomach. The stomach was insufflated. Scope passed through the pylorus to the second portion of the duodenum and slowly withdrawn. The following findings were noted: Duodenum was unremarkable. Stomach demonstrated some diffuse hemorrhagic points suggestive of gastritis or most likely a reactive gastropathy. Several biopsies were taken. The esophagus was unremarkable. The stomach was deflated. Scope was removed. The patient tolerated the procedure well. /[id number] /MODL
[2019-04-14] MEDS: Pantoprazole 40 MG Tab.CR PO SCH (07:57)
[2019-04-14] MEDS ORDERED: Sodium Chloride 0.9% 250 ML IV SCH (10:15)
--- NOTE | 2019-04-14 10:38 | DISCH ---
DISCHARGE DATE: 04/13/2019 REASON FOR ADMISSION: 1. GI bleed. 2. Anemia due to blood loss. 3. Pneumonia. PROCEDURES: Esophagogastroduodenoscopy done on 04/13/[address] Farias. DISCHARGE DIAGNOSES: 1. Anemia due to blood loss. 2. Lung masses, possibly due to lung cancer. 3. Tobacco abuse. 4. Type 2 diabetes. BRIEF HISTORY: This is a 78-year-old female who presented to the ER on the 2nd with shortness of breath, feeling poorly, progressive weakness, and black tarry stools. Hemoglobin was 6.9 on admission and some lesions noted on the left lower lung field, having had a prior right total pneumonectomy. She was given 1 unit of blood. EGD performed yesterday showed some gastritis, but today, her hemoglobin dropped to 7.2 and she is still short of breath. A CT done yesterday was concerning for possible metastasis and neoplasia. A decision was made to transfer to [facility] for further workup and proper diagnosis. We will send the patient after 1 unit of blood or give 1 unit of blood en route. I attempted to speak to the daughter, Kelsi, but she did not answer the phone call and I left a message. I spent more than 35 minutes in the discharge of the patient. /[id number] MELANY/FABIOLA
[2019-04-14 12:07] VITALS: BP 106/58; PULSE 96
[2019-04-14] MEDS ORDERED: Lidocaine 2% 5 ML SDV INJECT ONE (12:19)
[2019-04-14] MEDS ORDERED: Propofol 200 MG/20 ML SDV IV ONE (12:19)
[2019-04-14] MEDS: Nicotine 14 MG/24 Hr Patch TRDERM SCH (14:16)
== END 2019-04-14 12:20 | disposition other institution (70) | DRG 378 ==
LOC: FB.ED 07:59 → FB.MS 09:35
PROVIDERS: ADMIT Family Medicine; ATTEND Family Medicine
PROC: 0DB68ZX Excision of Stomach, Via Natural or Artificial Opening Endoscopic, Diagnostic (ICD-10-PCS; principal; 2019-04-13)
PROC: 30233N1 Transfusion of Nonautologous Red Blood Cells into Peripheral Vein, Percutaneous Approach (ICD-10-PCS; 2019-04-14)
DX: K29.71 Gastritis, unspecified, with bleeding (principal); D62 Acute posthemorrhagic anemia; C34.92 Malignant neoplasm of unspecified part of left bronchus or lung; E78.00 Pure hypercholesterolemia, unspecified; F17.210 Nicotine dependence, cigarettes, uncomplicated; Z85.118 Personal history of other malignant neoplasm of bronchus and lung; E11.9 Type 2 diabetes mellitus without complications; R32 Unspecified urinary incontinence; I48.91 Unspecified atrial fibrillation; M47.892 Other spondylosis, cervical region; I10 Essential (primary) hypertension; K21.9 Gastro-esophageal reflux disease without esophagitis; H26.9 Unspecified cataract; Z51.5 Encounter for palliative care; G89.4 Chronic pain syndrome; F41.9 Anxiety disorder, unspecified; F32.9 Major depressive disorder, single episode, unspecified; Z90.710 Acquired absence of both cervix and uterus; Z98.890 Other specified postprocedural states; Z90.721 Acquired absence of ovaries, unilateral; Z79.82 Long term (current) use of aspirin; Z79.01 Long term (current) use of anticoagulants; Z90.2 Acquired absence of lung [part of]; Z79.84 Long term (current) use of oral hypoglycemic drugs; Z79.899 Other long term (current) drug therapy; Z90.79 Acquired absence of other genital organ(s); Z98.1 Arthrodesis status
CPT/HCPCS: 36415; 71045; 80053; 81001; 82272; 82962; 84443; 84484; 85025; 85610; 93005; J7121; 36430; 71270; 85014; 85018; 86850; 86900; 86901; 86920; 86922; 94640; 94760; 96361; 96374; 99285; 99285-25; A9270-GY; J2001; J2704; J3430; J7030; J7050; J7120; J7612-GY; P9016; Q9967

== ENCOUNTER 2019-05-11 12:52 | Emergency (ER) | payer MEDICARE ==
[2019-05-11] MEDS ORDERED: Albuterol/Ipratropium 3.0-0.5 MG/3 ML Neb Soln NEB ONE (13:10)
[2019-05-11] MEDS ORDERED: Diltiazem 120 MG Cap.CD PO ONE (14:03)
[2019-05-11 14:15] VITALS: BP 124/92; PULSE 124
[2019-05-11] MEDS ORDERED: Warfarin 5 MG Tab PO ONE (14:15)
[2019-05-11] MEDS ORDERED: Sodium Chloride 0.9% 1,000 ML IV SCH (14:15)
--- NOTE | 2019-05-11 14:20 | EDM.PDOC ---
ED HPI GENERAL MEDICAL PROBLEM - General Chief Complaint: Cardiovascular Problem Stated Complaint: HEART ISSUE Time Seen by Provider: 05/11/19 13:20 Source of Information: Reports: Patient History Limitations: Reports: No Limitations - History of Present Illness INITIAL COMMENTS - FREE TEXT/NARRATIVE: states she has not been feeling well for one week has cough , weakness , not eating well has Afib and has not been taking medications ( coumadin , propranolol) Now HR has increase to the 120's ands she is feeling very weak Onset: Gradual Onset Date: 05/06/19 Duration: Intermittent Severity: Moderate Improves with: Reports: Rest Worsens with: Reports: Heat Therapy, Medication, Movement Associated Symptoms: Reports: Cough, Shortness of Breath - Related Data Allergies Allergy/AdvReac Type Severity Reaction Status Date / Time No Known Allergies Allergy Verified 10/01/18 19:49 Home Meds: Home Meds Propranolol [Inderal LA] 120 mg PO BEDTIME 02/12/13 [History] hydroCHLOROthiazide [Hydrochlorothiazide] 25 mg PO DAILY 02/12/13 [History] metFORMIN [Glucophage] 500 mg PO DAILY 02/12/13 [History] Calcium Citrate/Vitamin D3 [[place] Calcium D (200 MG Calcium)] 1 tab PO BID 10/22 [History] Clobetasol [Clobetasol 0.05%] 1 applic TOP DAILY PRN 06/15/13 [History] Multivitamin [Multivitamins] 1 each PO DAILY 06/15/13 [History] Ondansetron [Zofran ODT] 4 mg PO Q6H PRN 06/15/13 [History] Diclofenac Sodium [Voltaren] 4 gm TOP QID PRN 12/05/15 [History] Acetaminophen [Tylenol] 975 mg PO TID PRN 10/01/18 [History] Naproxen Sodium [Aleve] 440 mg PO TID PRN 10/01/18 [History] Warfarin Sodium [Jantoven] 7.5 mg PO WE 10/01/18 [History] Warfarin Sodium [Jantoven] 10 mg PO SUMOTUTHFRSA 10/01/18 [History] Albuterol [Proventil Neb Soln] 3 ml INH Q4H PRN 04/12/19 [History] Diltiazem [Cardizem CD] 120 mg PO DAILY 04/12/19 [History] Docusate Sodium 100 mg PO BID 04/12/19 [History] Sertraline [Zoloft] 75 mg PO DAILY 04/12/19 [History] Tiotropium [Spiriva HandiHaler] 18 mcg IH DAILY 04/12/19 [History] Cefuroxime Axetil [Ceftin] 500 mg PO BID #14 tablet 05/11/19 [Rx] Nitrofurantoin Monohyd/M-Cryst [Macrobid 100 mg Capsule] 100 mg PO BID #20 capsule 05/11/19 [Rx] Past Medical History HEENT History: Reports: Cataract Cardiovascular History: Reports: Afib, High Cholesterol, Hypertension, Other ( See Below) Other Cardiovascular History: SENILE NUCLEAR SCLEROSIS Respiratory History: Reports: Other (See Below) Other Respiratory History: LUNG CANCER, ALLERGIC RHINITIS Gastrointestinal History: Reports: GERD, Other (See Below) Other Gastrointestinal History: IRWIN'S ESOPHAGUS Genitourinary History: Reports: Urinary Incontinence 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: Musculoskeletal History: Reports: Other (See Below) Other Musculoskeletal History: CHRONIC PAIN SYNDROME, 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 Neurological History: Reports: None Psychiatric History: Reports: Anxiety, Depression Endocrine/Metabolic History: Reports: Diabetes, Type II Other Endocrine/Metabolic History: DYSTHYMIC DISORDER Hematologic History: Reports: Anemia Immunologic History: Reports: None Oncologic (Cancer) History: Reports: Lung Other Oncologic History: RIGHT LUNG REMOVAL Dermatologic History: Reports: None - Infectious Disease History Infectious Disease History: Reports: Measles, Mumps - Past Surgical History Head Surgeries/Procedures: Reports: None Respiratory Surgical History: Reports: Pneumonectomy GI Surgical History: Reports: Colonoscopy, EGD, Hernia, Abdominal, Sarah Fundoplication Female Surgical History: Reports: Breast Biopsy, Hysterectomy, Salpingo- Oophorectomy Oncologic Surgical History: Reports: Biopsy of Breast Social & Family History - Family History Family Medical History: Noncontributory - Tobacco Use Smoking Status *Q: Current Every Day Smoker Years of Tobacco use: 60 Packs/Tins Daily: 1 - Caffeine Use Caffeine Use: Reports: Coffee - Recreational Drug Use Recreational Drug Use: No - Living Situation & Occupation Occupation: Retired ED ROS GENERAL - Review of Systems Review Of Systems: Comprehensive ROS is negative, except as noted in HPI. Cardiovascular: Reports: Dyspnea on Exertion, Palpitations Endocrine: Reports: No Symptoms GI/Abdominal: Reports: No Symptoms ED EXAM, GENERAL - Physical Exam Exam: See Below Exam Limited By: No Limitations General Appearance: Alert, Cachetic Eye Exam: Bilateral Eye: EOMI Ears: Normal TMs Ear Exam: Bilateral Ear: Auricle Normal, Canal Normal, Bleeding Nose: Normal Inspection Head: Atraumatic Neck: Supple, Non-Tender Respiratory/Chest: Lungs Clear, Normal Breath Sounds, Chest Non-Tender Cardiovascular: Regular Rate, Rhythm, Irregularly Irregular (a few time s, but most of the time she is in sinus rhythm) GI/Abdominal: Soft, Non-Tender Extremities: Normal Range of Motion, Non-Tender Neurological: Alert, Oriented, CN II-XII Intact Psychiatric: Normal Affect Lymphatic: No Adenopathy Course - Vital Signs Last Recorded V/S: Last Vital Signs Temp 36.4 C 05/11/19 13:00 Pulse 124 H 05/11/19 14:14 Resp 32 H 05/11/19 13:00 BP 124/92 H 05/11/19 14:14 Pulse Ox 99 05/11/19 13:00 - Orders/Labs/Meds Orders: Active Orders 24 hr Category Date Time Status EKG Documentation Completion [RC] ASDIRECTED Care 05/11/19 13:16 Active RT Aerosol Therapy [RC] ASDIRECTED Care 05/11/19 13:10 Active Chest 2V [CR] Stat Exams 05/11/19 14:19 Taken CULTURE URINE [RM] Stat Lab 05/11/19 15:47 Received Propranolol [Inderal LA] Med 05/11/19 16:45 Once 120 mg PO ONETIME ONE Sodium Chloride 0.9% [Normal Saline] 1,000 ml Med 05/11/19 14:15 Active IV ASDIRECTED EKG 12 Lead [EK] Routine Ther 05/11/19 13:16 Ordered Medication Orders Sodium Chloride (Normal Saline) 1,000 mls @ 500 mls/hr IV ASDIRECTED CHUCK Last Admin: 05/11/19 14:11 Dose: 500 mls/hr Propranolol HCl (Inderal La) 120 mg PO ONETIME ONE Stop: 05/11/19 16:46 Labs: Laboratory Tests 05/11/19 05/11/19 05/11/19 Range/Units 13:20 13:20 13:20 WBC 10.5 (4.5-12.0) X10-3/uL RBC 4.33 (3.23-5.20) x10(6)uL Hgb 12.1 D (11.5-15.5) g/dL Hct 37.2 D (30.0-51.3) % MCV 85.8 (80-96) fL MCH 28.0 (27.7-33.6) pg MCHC 32.6 (32.2-35.4) g/dL RDW 15.2 (11.5-15.5) % Plt Count 481 H (125-369) X10(3)uL MPV 7.3 L (7.4-10.4) fL Neut % (Auto) 79.9 (46-82) % Lymph % (Auto) 8.8 L (13-37) % Greer % (Auto) 5.4 (4-12) % Eos % (Auto) 4 (1.0-5.0) % Baso % (Auto) 2 (0-2) % Neut # (Auto) 8.4 H (1.6-8.3) # Lymph # (Auto) 0.9 (0.6-5.0) # Greer # (Auto) 0.6 (0.0-1.3) # Eos # (Auto) 0.4 (0.0-0.8) # Baso # (Auto) 0.2 (0.0-0.2) # PT 11.9 H (8.7-11.1) INR 1.23 H (0.89-1.13) Sodium 141 (135-145) mmol/L Potassium 3.5 (3.5-5.3) mmol/L Chloride 101 D (100-110) mmol/L Carbon Dioxide 26 (21-32) mmol/L BUN 11 (7-18) mg/dL Creatinine 0.6 (0.55-1.02) mg/dL Est Cr Clr Drug Dosing TNP Estimated GFR (MDRD) > 60 (>60) BUN/Creatinine Ratio 18.3 (9-20) Glucose 130 H (80-116) mg/dL Calcium 9.4 (8.6-10.2) mg/dL NT-Pro-B Natriuret Pep (<=450) pg/mL Urine Color (YELLOW) Urine Appearance (CLEAR) Urine pH (5.0-6.5) Ur Specific [place] (1.010-1.025) Urine Protein (NEGATIVE) mg/dL Urine Glucose (UA) (NORMAL) mg/dL Urine Ketones (NEGATIVE) mg/dL Urine Occult Blood (NEGATIVE) Urine Nitrite (NEGATIVE) Urine Bilirubin (NEGATIVE) Urine Urobilinogen (NEGATIVE) mg/dL Ur Leukocyte Esterase (NEGATIVE) Urine RBC (0-5) Urine WBC (0-5) Ur Squamous Epith Cells (NS,R,O) Urine Bacteria (NS) 05/11/19 05/11/19 Range/Units 13:20 15:47 WBC (4.5-12.0) X10-3/uL RBC (3.23-5.20) x10(6)uL Hgb (11.5-15.5) g/dL Hct (30.0-51.3) % MCV (80-96) fL MCH (27.7-33.6) pg MCHC (32.2-35.4) g/dL RDW (11.5-15.5) % Plt Count (125-369) X10(3)uL MPV (7.4-10.4) fL Neut % (Auto) (46-82) % Lymph % (Auto) (13-37) % Greer % (Auto) (4-12) % Eos % (Auto) (1.0-5.0) % Baso % (Auto) (0-2) % Neut # (Auto) (1.6-8.3) # Lymph # (Auto) (0.6-5.0) # Greer # (Auto) (0.0-1.3) # Eos # (Auto) (0.0-0.8) # Baso # (Auto) (0.0-0.2) # PT (8.7-11.1) INR (0.89-1.13) Sodium (135-145) mmol/L Potassium (3.5-5.3) mmol/L Chloride (100-110) mmol/L Carbon Dioxide (21-32) mmol/L BUN (7-18) mg/dL Creatinine (0.55-1.02) mg/dL Est Cr Clr Drug Dosing Estimated GFR (MDRD) (>60) BUN/Creatinine Ratio (9-20) Glucose (80-116) mg/dL Calcium (8.6-10.2) mg/dL NT-Pro-B Natriuret Pep 293 (<=450) pg/mL Urine Color Yellow (YELLOW) Urine Appearance Slightly cloudy (CLEAR) Urine pH 7.0 H (5.0-6.5) Ur Specific [place] 1.010 (1.010-1.025) Urine Protein Negative (NEGATIVE) mg/dL Urine Glucose (UA) Normal (NORMAL) mg/dL Urine Ketones 15 H (NEGATIVE) mg/dL Urine Occult Blood Moderate H (NEGATIVE) Urine Nitrite Positive H (NEGATIVE) Urine Bilirubin Negative (NEGATIVE) Urine Urobilinogen Normal (NEGATIVE) mg/dL Ur Leukocyte Esterase Large H (NEGATIVE) Urine RBC 0-5 (0-5) Urine WBC 10-20 H (0-5) Ur Squamous Epith Cells Few H (NS,R,O) Urine Bacteria Many H (NS) Meds: Medications Generic Name Dose Route Start Last Admin Trade Name Freq PRN Reason Stop Dose Admin Sodium Chloride 1,000 mls @ 500 mls/hr 05/11/19 14:15 05/11/19 14:11 Normal Saline IV 500 mls/hr ASDIRECTED CHUCK Administration Propranolol HCl 120 mg 05/11/19 16:45 Inderal La PO 05/11/19 16:46 ONETIME ONE Discontinued Medications Generic Name Dose Route Start Last Admin Trade Name Freq PRN Reason Stop Dose Admin Albuterol/Ipratropium 3 ml 05/11/19 13:10 05/11/19 13:20 Duoneb 3.0-0.5 Mg/3 Ml NEB 05/11/19 13:11 3 ml ONETIME ONE Administration Diltiazem HCl 120 mg 05/11/19 14:03 05/11/19 14:14 Cardizem Cd PO 05/11/19 14:04 120 mg ONETIME ONE Administration Ceftriaxone Sodium 1 gm/ 50 mls @ 200 mls/hr 05/11/19 16:14 05/11/19 16:19 Sodium Chloride IV 05/11/19 16:28 200 mls/hr ONETIME ONE Administration Warfarin Sodium 10 mg 05/11/19 14:15 05/11/19 14:25 Coumadin PO 05/11/19 14:16 10 mg ONETIME ONE Administration - Re-Assessments/Exams Free Text/Narrative Re-Assessment/Exam: 05/11/19 16:07 pt given fluids and her medications HR slowly decreasing pt states she feel better discuss need to be compliant with medications Departure - Departure Time of Disposition: 16:50 Disposition: Home, Self-Care 01 Condition: Fair Clinical Impression: Long-term (current) use of anticoagulants, INR goal 2.0-3.0, Diabetes type 2, controlled Afib Qualifiers: Atrial fibrillation type: paroxysmal Qualified Code(s): I48.0 - Paroxysmal atrial fibrillation UTI (urinary tract infection) Qualifiers: Urinary tract infection type: site unspecified Hematuria presence: without hematuria Qualified Code(s): N39.0 - Urinary tract infection, site not specified Prescriptions: Nitrofurantoin Monohyd/M-Cryst [Macrobid 100 mg Capsule] 100 mg PO BID #20 capsule Instructions: Atrial Fibrillation, [id number], Urinary Tract Infection, Adult Referrals: Mary Garzon PA-C [Primary Care Provider] - Forms: ED Department Discharge Additional Instructions: pt encouraged to be compliant with her medications Urine culture pending Increase fluid intake to aid with treatment of UTI Sepsis Event Note - Evaluation Sepsis Screening Result: No Definite Risk - Focused Exam Vital Signs: Vital Signs Temp Pulse Pulse Resp BP BP Pulse Ox 05/11/19 14:14 124 H 124/92 H 05/11/19 13:00 36.4 C 111 H 32 H 147/89 H 99 Date Exam was Performed: 05/11/19 Time Exam was Performed: 16:44 - My Orders Last 24 Hours: My Active Orders 05/11/19 13:10 RT Aerosol Therapy [RC] ASDIRECTED 05/11/19 13:16 EKG Documentation Completion [RC] ASDIRECTED EKG 12 Lead [EK] Routine 05/11/19 14:15 Sodium Chloride 0.9% [Normal Saline] 1,000 ml IV ASDIRECTED 05/11/19 14:19 Chest 2V [CR] Stat 05/11/19 15:47 CULTURE URINE [RM] Stat 05/11/19 16:45 Propranolol [Inderal LA] 120 mg PO ONETIME ONE - Assessment/Plan Last 24 Hours: My Active Orders 05/11/19 13:10 RT Aerosol Therapy [RC] ASDIRECTED 05/11/19 13:16 EKG Documentation Completion [RC] ASDIRECTED EKG 12 Lead [EK] Routine 05/11/19 14:15 Sodium Chloride 0.9% [Normal Saline] 1,000 ml IV ASDIRECTED 05/11/19 14:19 Chest 2V [CR] Stat 05/11/19 15:47 CULTURE URINE [RM] Stat 05/11/19 16:45 Propranolol [Inderal LA] 120 mg PO ONETIME ONE
[2019-05-11] MEDS ORDERED: Propranolol 80 MG Cap.ER PO ONE (16:05)
[2019-05-11] MEDS ORDERED: cefTRIAXone 1 GM in Sodium Chloride 0.9% 50 ML IV ONE (16:14)
[2019-05-11] MEDS ORDERED: Propranolol 60 MG Cap.ER PO ONE (16:45)
--- NOTE | 2019-05-11 17:42 | CR ---
INDICATION: Shortness of breath, history of lung CA 2006 with right pneumonectomy, smoker x60 years, 1 pack per day. CHEST, TWO VIEWS: PA and lateral views of the chest 05/11/19 were compared with 04/12/19 and 10/01/18 again revealing opacification of the right hemithorax , compatible with pneumonectomy with shift of midline structures to the right and hyperaeration of the left lung. In the mid to lower lung field on the left, there is an appearance suggesting infiltration which may be due to the overlying breast tissue in that area. No consolidating pneumonia or effusion was identified. Evidence of surgery is noted with fusion in the neck and left shoulder repair. Overlying EKG leads are noted. Diminished bone density is suggested, compatible with osteoporosis - correlate clinically. IMPRESSION: 1. Patient is post right pneumonectomy for lung CA. 2. Hyperaeration of the left lung is noted with shift of midline structures secondarily to the right filling the post-pneumonectomy right hemithorax. 3. Increased density in the lower lung field on the left, most likely due to overlying breast tissue, but difficult to exclude patchy bronchopneumonia in that area. 4. Diminished bone density suggesting osteoporosis. MTDD
== END 2019-05-11 18:23 | disposition home or self-care (01) ==
LOC: FB.ED 12:52
DX: I48.91 Unspecified atrial fibrillation (principal); N39.0 Urinary tract infection, site not specified; E11.9 Type 2 diabetes mellitus without complications; E78.00 Pure hypercholesterolemia, unspecified; I10 Essential (primary) hypertension; F32.9 Major depressive disorder, single episode, unspecified; F41.9 Anxiety disorder, unspecified; Z79.01 Long term (current) use of anticoagulants; F17.210 Nicotine dependence, cigarettes, uncomplicated; Z79.899 Other long term (current) drug therapy; Z79.84 Long term (current) use of oral hypoglycemic drugs; Z85.118 Personal history of other malignant neoplasm of bronchus and lung
CPT/HCPCS: 36415; 71046; 80048; 81001; 83880; 85025; 85610; 87086; 87088; 87804; 93005; 94640; 99284; A9270; J0696; J7030; J7050; J7620-GY

== ENCOUNTER 2019-05-17 12:10 | Emergency (ER) | payer MEDICARE ==
[2019-05-17 12:27] VITALS: BP 129/70; PULSE 72
--- NOTE | 2019-05-17 12:29 | EDM.PDOC ---
ED HPI GENERAL MEDICAL PROBLEM - General Chief Complaint: Back Pain or Injury Stated Complaint: FELL Time Seen by Provider: 05/17/19 12:27 Source of Information: Reports: Patient History Limitations: Reports: No Limitations - History of Present Illness INITIAL COMMENTS - FREE TEXT/NARRATIVE: 78-year-old female who was walking in her home and tripped over laundry and fell landing directly on her buttock area. This occurred approximately 11 AM today. She did not hit her head. There was no loss of consciousness. She had no weakness or dizziness prior to this fall. She complains of pain over her buttock /tailbone and posterior pelvis area. She has no cervical, lumbar or thoracic back pain. She has no leg pains. There is no abdominal pain. There is no weakness. She rates pain as an 8/10. It is a sharp pain that is worse with palpation and with movement. She was able to get herself off of the floor after the fall and was able to ambulate. The pain doesn't radiate. She had no antecedent symptoms. There are no other associated signs or symptoms. There are no other modifying factors. 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 (see below) (Nothing) Bilateral Lower Back Pain Score (Numeric/FACES): 2 - Related Data Allergies Allergy/AdvReac Type Severity Reaction Status Date / Time No Known Allergies Allergy Verified 10/01/18 19:49 Home Meds: Home Meds Propranolol [Inderal LA] 120 mg PO BEDTIME 02/12/13 [History] hydroCHLOROthiazide [Hydrochlorothiazide] 25 mg PO DAILY 02/12/13 [History] metFORMIN [Glucophage] 500 mg PO DAILY 02/12/13 [History] Calcium Citrate/Vitamin D3 [[place] Calcium D (200 MG Calcium)] 1 tab PO BID 10/22 [History] Clobetasol [Clobetasol 0.05%] 1 applic TOP DAILY PRN 06/15/13 [History] Multivitamin [Multivitamins] 1 each PO DAILY 06/15/13 [History] Ondansetron [Zofran ODT] 4 mg PO Q6H PRN 06/15/13 [History] Diclofenac Sodium [Voltaren] 4 gm TOP QID PRN 12/05/15 [History] Acetaminophen [Tylenol] 975 mg PO TID PRN 10/01/18 [History] Naproxen Sodium [Aleve] 440 mg PO TID PRN 10/01/18 [History] Warfarin Sodium [Jantoven] 5 mg PO SUMOTUTHFRSA 10/01/18 [History] Warfarin Sodium [Jantoven] 7.5 mg PO WE 10/01/18 [History] Albuterol [Proventil Neb Soln] 3 ml INH Q4H PRN 04/12/19 [History] Diltiazem [Cardizem CD] 120 mg PO DAILY 04/12/19 [History] Docusate Sodium 100 mg PO BID 04/12/19 [History] Sertraline [Zoloft] 75 mg PO DAILY 04/12/19 [History] Tiotropium [Spiriva HandiHaler] 18 mcg IH DAILY 04/12/19 [History] Cefuroxime Axetil [Ceftin] 500 mg PO BID #14 tablet 05/11/19 [Rx] Acetaminophen/HYDROcodone [Warren 325-5 MG] 1 tab PO Q4H PRN #14 tab 05/17/19 [Rx ] Past Medical History HEENT History: Reports: Cataract Cardiovascular History: Reports: Afib (On Coumadin), High Cholesterol, Hypertension, Other (See Below) Other Cardiovascular History: SENILE NUCLEAR SCLEROSIS Respiratory History: Reports: COPD Gastrointestinal History: Reports: GERD, Other (See Below) Other Gastrointestinal History: IRWIN'S ESOPHAGUS Genitourinary History: Reports: Urinary Incontinence Musculoskeletal History: Reports: Other (See Below) Other Musculoskeletal History: CHRONIC PAIN SYNDROME, 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 Psychiatric History: Reports: Anxiety, Depression Endocrine/Metabolic History: Reports: Diabetes, Type II Hematologic History: Reports: Anemia, Anticoagulation Therapy (On Coumadin) Oncologic (Cancer) History: Reports: Lung Other Oncologic History: RIGHT LUNG REMOVAL - Infectious Disease History Infectious Disease History: Reports: Measles, Mumps - Past Surgical History Respiratory Surgical History: Reports: Pneumonectomy GI Surgical History: Reports: Colonoscopy, EGD, Hernia, Abdominal, Sarah Fundoplication Female Surgical History: Reports: Breast Biopsy, Hysterectomy, Salpingo- Oophorectomy Oncologic Surgical History: Reports: Biopsy of Breast Social & Family History - Tobacco Use Smoking Status *Q: Current Every Day Smoker Years of Tobacco use: 60 Packs/Tins Daily: 1 Used Tobacco, but Quit: No - Caffeine Use Caffeine Use: Reports: Coffee - Alcohol Use Alcohol Use History: No - Recreational Drug Use Recreational Drug Use: No - Living Situation & Occupation Living situation: Reports: Alone Occupation: Retired Social History Comment: Lives alone in her own home. ED ROS GENERAL - Review of Systems Review Of Systems: See Below Constitutional: Reports: No Symptoms HEENT: Reports: No Symptoms Respiratory: Reports: No Symptoms Cardiovascular: Reports: No Symptoms GI/Abdominal: Reports: No Symptoms : Reports: No Symptoms Musculoskeletal: Reports: Other (Buttock, tail bone and posterior pelvis pain) Skin: Reports: No Symptoms Neurological: Reports: No Symptoms Hematologic/Lymphatic: Reports: No Symptoms Immunologic: Reports: No Symptoms ED EXAM,LOWER BACK PAIN/INJURY - Physical Exam Exam: See Below Exam Limited By: No Limitations General Appearance: Alert, Moderate Distress, Thin Eye Exam: Bilateral Eye: EOMI, Normal Inspection, PERRL Ears: Normal External Exam, Hearing Grossly Normal Nose: Normal Inspection, Normal Mucosa, No Blood Throat/Mouth: Normal Inspection, Normal Oropharynx, Normal Voice, No Airway Compromise Head: Atraumatic, Normocephalic Neck: Normal Inspection, Supple, Non-Tender, Full Range of Motion Respiratory/Chest: No Respiratory Distress, Lungs Clear, Normal Breath Sounds, No Accessory Muscle Use, Chest Non-Tender Cardiovascular: Normal Peripheral Pulses, Regular Rate, Rhythm, No JVD, No Murmur GI/Abdominal: Normal Bowel Sounds, Soft, Non-Tender, No Mass, Other (Scaphoid) Back Exam: Other (Tenderness to palpation over the patient's her sacrum and coccyx area. No pain with compression of the pelvis area) Extremities: Normal Inspection, Normal Range of Motion, Non-Tender, No Pedal Edema, Normal Capillary Refill Neurological: Alert, Normal Mood/Affect, Normal Dorsiflexion, CN II-XII Intact, No Motor/Sensory Deficits, Oriented x 3 Skin Exam: Warm, Dry, Intact, Normal Color, No Rash Course - Vital Signs Last Recorded V/S: Last Vital Signs Temp 36.3 C 05/17/19 12:31 Pulse 72 05/17/19 12:31 Resp 18 05/17/19 12:31 BP 129/70 05/17/19 12:31 Pulse Ox 94 L 05/17/19 12:31 - Orders/Labs/Meds Labs: Laboratory Tests 05/17/19 Range/Units 12:55 PT 30.9 H (8.7-11.1) INR 3.23 H (0.89-1.13) Meds: Medications Discontinued Medications Generic Name Dose Route Start Last Admin Trade Name Freq PRN Reason Stop Dose Admin Hydrocodone Bitart/Acetaminophen 1 tab 05/17/19 12:40 05/17/19 13:10 Warren 325-5 Mg PO 05/17/19 12:41 1 tab ONETIME ONE Administration - Radiology Interpretation Free Text/Narrative:: One view pelvis x-ray shows no definite fracture. Sacrum and coccyx x-ray shows possible coccygeal fracture that is nondisplaced. - Re-Assessments/Exams Free Text/Narrative Re-Assessment/Exam: 05/17/19 14:30: Patient's x-rays show possible coccyx fracture. She has had little relief from the hydrocodone for her pain but she is able to ambulate with assistance. She does have a walker at home and her son is going to be staying with her for few days. I will prescribe the patient tramadol for her pain. Her INR was slightly supratherapeutic. I will have her hold her dose Coumadin tonight and she is to follow-up with her Coumadin clinic nurse tomorrow. Precautions and reasons for return to the emergency department were discussed with the patient prior to her discharge. Departure - Departure Time of Disposition: 14:43 Disposition: Home, Self-Care 01 Condition: Good (Stable) Clinical Impression: Supratherapeutic INR, Fall from other slipping, tripping, or stumbling Contusion, buttock Qualifiers: Encounter type: initial encounter Qualified Code(s): S30.0XXA - Contusion of lower back and pelvis, initial encounter Fractured coccyx Qualifiers: Encounter type: initial encounter Fracture type: closed Qualified Code(s): S32.2XXA - Fracture of coccyx, initial encounter for closed fracture - Discharge Information Prescriptions: Acetaminophen/HYDROcodone [Warren 325-5 MG] 1 tab PO Q4H PRN #14 tab PRN Reason: Moderate to severe pain Instructions: Fall Prevention in the Home, Adult, Booc-nl-Xsal, Contusion, Easy -to-Read Referrals: PCP,None [Primary Care Provider] - Forms: ED Department Discharge Additional Instructions: The x-rays of your pelvis and tailbone did show a nondisplaced fracture of your tailbone. There is no specific treatment for this other than to allow it to heal on its own. You should use a soft pillow to sit on. You should ambulate as tolerated with your bedside walker. Medication as prescribed (hydrocodone 5/325) . You should take a stool softener twice daily. You may also use MiraLAX (over- the-counter) one dose twice daily as needed for constipation. Follow-up with your primary doctor. Your INR was too high. Do not take your Coumadin tonight. Follow-up with your Coumadin clinic nurse tomorrow. Back to the emergency department for abdominal pain, vomiting or any other concerning sign or symptom. Sepsis Event Note - Focused Exam Date Exam was Performed: 05/18/19 Time Exam was Performed: 06:49
[2019-05-17] MEDS ORDERED: Acetaminophen/HYDROcodone 325-5 MG Tab PO ONE (12:40)
--- NOTE | 2019-05-17 19:33 | CR ---
INDICATION: Fall with injury to tailbone area. SACRUM AND COCCYX: Three views of the sacrum and coccyx were obtained and revealed relatively poor visualization of the coccyx due to overlying stool. Sacroiliac joints appear to be fairly intact with only minimal degenerative change on the right. Metallic density is noted overlying the left sacral ala. A definite acute fracture or dislocation was not identified. Imaging of the coccyx is not ideal but no gross fracture site or dislocation was identified. If symptoms persist - if occult fracture site is suspected clinically, nuclear bone imaging or possibly CT examination may be helpful for further evaluation. CLARENCED
--- NOTE | 2019-05-17 19:36 | CR ---
INDICATION: Fall with injury to buttocks and posterior pelvis. PELVIS: A single frontal view of the pelvis was obtained 05/17/19 - no comparisons. The hip joints and sacroiliac joints appear to be fairly intact. Bone density appeared to be grossly normal. A definite fracture or dislocation was not identified. If occult fracture site is suspected clinically, reexamination in 10 to [address] or nuclear bone imaging, may be helpful for further evaluation. MTDD
== END 2019-05-17 15:18 | disposition home or self-care (01) ==
LOC: FB.ED 12:10
DX: S32.2XXA Fracture of coccyx, initial encounter for closed fracture (principal); S30.0XXA Contusion of lower back and pelvis, initial encounter; I48.91 Unspecified atrial fibrillation; E78.00 Pure hypercholesterolemia, unspecified; I10 Essential (primary) hypertension; J44.9 Chronic obstructive pulmonary disease, unspecified; E11.9 Type 2 diabetes mellitus without complications; K21.9 Gastro-esophageal reflux disease without esophagitis; F17.210 Nicotine dependence, cigarettes, uncomplicated; Z79.84 Long term (current) use of oral hypoglycemic drugs; Z79.01 Long term (current) use of anticoagulants; Z79.899 Other long term (current) drug therapy; W01.0XXA Fall on same level from slipping, tripping and stumbling without subsequent striking against object, initial encounter; Y92.009 Unspecified place in unspecified non-institutional (private) residence as the place of occurrence of the external cause
CPT/HCPCS: 36415; 72170; 72220; 85610; 99284; A9270; 99283

== ENCOUNTER 2019-07-23 03:46 | Observation (INO) | payer MEDICARE, OTHER ==
[2019-07-23] MEDS ORDERED: Sodium Chloride 0.9% 10 ML Syringe FLUSH PRN ×2 (03:53→05:47)
[2019-07-23] MEDS ORDERED: Albuterol/Ipratropium 3.0-0.5 MG/3 ML Neb Soln NEB ONE (03:56)
[2019-07-23] MEDS ORDERED: Morphine 2 MG/ML Syringe IVPUSH ONE (03:56)
[2019-07-23] MEDS ORDERED: methylPREDNISolone Sodium Succinate 125 MG/2 ML SDV IVPUSH ONE (03:58)
[2019-07-23] MEDS ORDERED: Ondansetron 4 MG/2 ML SDV IV PRN (05:47)
[2019-07-23] MEDS ORDERED: Docusate Sodium 100 MG Cap PO PRN (05:47)
[2019-07-23] MEDS ORDERED: Acetaminophen 325 MG Tab PO PRN (05:47)
[2019-07-23] MEDS ORDERED: Albuterol 0.5% 5 MG/ML Neb Soln 20 ML Bottle NEB PRN (05:57)
[2019-07-23] MEDS ORDERED: Albuterol/Ipratropium 3.0-0.5 MG/3 ML Neb Soln NEB SCH (06:00)
[2019-07-23] MEDS ORDERED: Piperacillin/Tazobactam 3.375 GM in Sodium Chloride 0.9% 50 ML IV SCH (06:15)
[2019-07-23] MEDS ORDERED: cefTRIAXone 1 GM in Sodium Chloride 0.9% 50 ML IV SCH (06:15)
--- NOTE | 2019-07-23 06:20 | EDM.PDOC ---
ED HPI GENERAL MEDICAL PROBLEM - General Chief Complaint: Respiratory Problem Stated Complaint: SOB Time Seen by Provider: 07/23/19 03:55 Source of Information: Reports: Patient History Limitations: Reports: No Limitations - History of Present Illness INITIAL COMMENTS - FREE TEXT/NARRATIVE: Patient presented to the ED via EMS because of increasing dyspnea for 3 days. There is also increase in coughing productive of yellowish white sputum. There is no associated fever or chills. She used her neb at home which didn't provide significant relief of her dyspnea. She has a history of COPD and Lung CA s/p left lung resection in 2005. She still smokes 1/2 PPD. - Related Data Allergies Allergy/AdvReac Type Severity Reaction Status Date / Time No Known Allergies Allergy Verified 10/01/18 19:49 Home Meds: Home Meds Propranolol [Inderal LA] 120 mg PO BEDTIME 02/12/13 [History] hydroCHLOROthiazide [Hydrochlorothiazide] 25 mg PO DAILY 02/12/13 [History] metFORMIN [Glucophage] 500 mg PO DAILY 02/12/13 [History] Calcium Citrate/Vitamin D3 [[place] Calcium D (200 MG Calcium)] 1 tab PO BID 10/22 [History] Clobetasol [Clobetasol 0.05%] 1 applic TOP DAILY PRN 06/15/13 [History] Multivitamin [Multivitamins] 1 each PO DAILY 06/15/13 [History] Ondansetron [Zofran ODT] 4 mg PO Q6H PRN 06/15/13 [History] Diclofenac Sodium [Voltaren] 4 gm TOP QID PRN 12/05/15 [History] Acetaminophen [Tylenol] 975 mg PO TID PRN 10/01/18 [History] Naproxen Sodium [Aleve] 440 mg PO TID PRN 10/01/18 [History] Warfarin Sodium [Jantoven] 5 mg PO SUMOTUTHFRSA 10/01/18 [History] Warfarin Sodium [Jantoven] 7.5 mg PO WE 10/01/18 [History] Albuterol [Proventil Neb Soln] 3 ml INH Q4H PRN 04/12/19 [History] Diltiazem [Cardizem CD] 120 mg PO DAILY 04/12/19 [History] Docusate Sodium 100 mg PO BID 04/12/19 [History] Sertraline [Zoloft] 75 mg PO DAILY 04/12/19 [History] Tiotropium [Spiriva HandiHaler] 18 mcg IH DAILY 04/12/19 [History] Cefuroxime Axetil [Ceftin] 500 mg PO BID #14 tablet 05/11/19 [Rx] Acetaminophen/HYDROcodone [Polo 325-5 MG] 1 tab PO Q4H PRN #14 tab 05/17/19 [Rx ] Past Medical History HEENT History: Reports: Cataract Cardiovascular History: Reports: Afib, High Cholesterol, Hypertension, Other ( See Below) Other Cardiovascular History: SENILE NUCLEAR SCLEROSIS Respiratory History: Reports: COPD, SOB Other Respiratory History: LUNG CANCER, ALLERGIC RHINITIS Gastrointestinal History: Reports: GERD, Other (See Below) Other Gastrointestinal History: IRWIN'S ESOPHAGUS Genitourinary History: Reports: Urinary Incontinence 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: Musculoskeletal History: Reports: Other (See Below) Other Musculoskeletal History: CHRONIC PAIN SYNDROME, 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 Neurological History: Reports: None Psychiatric History: Reports: Anxiety, Depression Endocrine/Metabolic History: Reports: Diabetes, Type II Other Endocrine/Metabolic History: DYSTHYMIC DISORDER Hematologic History: Reports: Anemia, Anticoagulation Therapy Immunologic History: Reports: None Oncologic (Cancer) History: Reports: Lung Other Oncologic History: RIGHT LUNG REMOVAL Dermatologic History: Reports: None - Infectious Disease History Infectious Disease History: Reports: Measles, Mumps - Past Surgical History Head Surgeries/Procedures: Reports: None Respiratory Surgical History: Reports: Pneumonectomy GI Surgical History: Reports: Colonoscopy, EGD, Hernia, Abdominal, Sarah Fundoplication Female Surgical History: Reports: Breast Biopsy, Hysterectomy, Salpingo- Oophorectomy Oncologic Surgical History: Reports: Biopsy of Breast Social & Family History - Family History Family Medical History: Noncontributory - Tobacco Use Smoking Status *Q: Current Every Day Smoker Years of Tobacco use: 0 Packs/Tins Daily: 0 Tobacco Use Comment: Patient unable to answer how long she has smoked or how many packs a day she smokes - Caffeine Use Caffeine Use: Reports: Coffee - Recreational Drug Use Recreational Drug Use: No - Living Situation & Occupation Living situation: Reports: Alone Occupation: Retired ED ROS GENERAL - Review of Systems Review Of Systems: See Below Constitutional: Denies: Fever, Chills, Malaise HEENT: Reports: No Symptoms Respiratory: Reports: Shortness of Breath, Wheezing Cardiovascular: Reports: No Symptoms Endocrine: Reports: No Symptoms GI/Abdominal: Reports: No Symptoms : Reports: No Symptoms Musculoskeletal: Reports: No Symptoms Skin: Reports: No Symptoms Neurological: Reports: No Symptoms Psychiatric: Reports: No Symptoms Hematologic/Lymphatic: Reports: No Symptoms Immunologic: Reports: No Symptoms ED EXAM, GENERAL - Physical Exam Exam: See Below Exam Limited By: No Limitations General Appearance: Alert, No Apparent Distress Eye Exam: Bilateral Eye: PERRL Ears: Normal External Exam Nose: Normal Inspection, Normal Mucosa Throat/Mouth: Normal Inspection Head: Atraumatic, Normocephalic Neck: Normal Inspection, Supple, Non-Tender Respiratory/Chest: Chest Non-Tender, Rhonchi, Wheezing Cardiovascular: Normal Peripheral Pulses, No Edema, Tachycardia Back Exam: Normal Inspection, Full Range of Motion Extremities: Normal Inspection, Normal Range of Motion Neurological: Alert, Oriented, CN II-XII Intact, Normal Cognition Course - Vital Signs Text/Narrative:: Labs reviewed and discussed with patient,verbalized full understanding duoneb x2,solumedrol 125 mg IVx1,morphine 4 mg IV x1 with significant relief of her dyspnea Start on Zosyn 3.75 gm Last Recorded V/S: Last Vital Signs Temp 37.1 C 07/23/19 03:50 Pulse 110 H 07/23/19 03:50 Resp 30 H 07/23/19 03:50 BP 137/93 H 07/23/19 03:50 Pulse Ox 86 L 07/23/19 03:50 - Orders/Labs/Meds Orders: Active Orders 24 hr Category Date Time Status Patient Status [ADT] Routine ADT 07/23/19 05:48 Active Blood Glucose Check, Bedside [RC] BIDMEALS Care 07/23/19 05:47 Active Cardiac Monitoring [RC] CONTINUOUS Care 07/23/19 05:50 Active EKG Documentation Completion [RC] ASDIRECTED Care 07/23/19 03:55 Active Insert Urinary Catheter [OM.PC] Q24H Care 07/23/19 05:15 Ordered Oxygen Therapy [RC] PRN Care 07/23/19 05:48 Active Pulse Oximetry [RC] CONTINUOUS Care 07/23/19 05:50 Active RT Aerosol Therapy [RC] ASDIRECTED Care 07/23/19 03:57 Active RT Aerosol Therapy [RC] ASDIRECTED Care 07/23/19 05:59 Active Up With Assistance [RC] ASDIRECTED Care 07/23/19 05:47 Active VTE/DVT Education [RC] Per Unit Routine Care 07/23/19 05:48 Active Vital Signs [RC] Q4H Care 07/23/19 05:48 Active Heart Healthy Diet [DIET] Diet 07/23/19 Breakfast Ordered Chest 1V Frontal [CR] Stat Exams 07/23/19 03:53 Taken CULTURE BLOOD [BC] Routine Lab 07/23/19 06:00 Ordered CULTURE BLOOD [BC] Routine Lab 07/23/19 06:00 Ordered CULTURE SPUTUM + SMEAR [RM] Routine Lab 07/23/19 06:00 Ordered INR,PT,PROTHROMBIN TIME [COAG] DAILY Lab 07/23/19 06:00 Ordered Acetaminophen [Tylenol] Med 07/23/19 05:47 Active 650 mg PO Q4H PRN Albuterol [Proventil Neb Soln] Med 07/23/19 05:57 Active 2.5 mg NEB Q1H PRN Albuterol/Ipratropium [DuoNeb 3.0-0.5 MG/3 ML] Med 07/23/19 06:00 Active 3 ml NEB Q6H Docusate Sodium [Colace] Med 07/23/19 05:47 Active 100 mg PO BID PRN Ondansetron [Zofran] Med 07/23/19 05:47 Active 4 mg IV Q4H PRN Potassium Chloride [Klor-Con M20] Med 07/23/19 09:00 Active 40 meq PO BID Sodium Chloride 0.9% [Saline Flush] Med 07/23/19 03:53 Active 10 ml FLUSH ASDIRECTED PRN Sodium Chloride 0.9% [Saline Flush] Med 07/23/19 05:47 Active 10 ml FLUSH ASDIRECTED PRN Blood Culture x2 Reflex Set [OM.PC] ONETIME Oth 07/23/19 06:00 Ordered Saline Lock Insert [OM.PC] Routine Oth 07/23/19 03:53 Ordered Saline Lock Insert [OM.PC] Routine Oth 07/23/19 05:47 Ordered Resuscitation Status Routine Resus Stat 07/23/19 05:47 Ordered EKG 12 Lead [EK] Routine Ther 07/23/19 03:53 Ordered Medication Orders Acetaminophen (Tylenol) 650 mg PO Q4H PRN PRN Reason: Pain (Mild 1-3)/fever Albuterol (Proventil Neb Soln) 2.5 mg NEB Q1H PRN PRN Reason: Dyspnea Albuterol/Ipratropium (Duoneb 3.0-0.5 Mg/3 Ml) 3 ml NEB Q6H CHUCK Docusate Sodium (Colace) 100 mg PO BID PRN PRN Reason: Constipation Piperacillin Sod/Tazobactam (Sod 3.375 gm/ Sodium Chloride) 50 mls @ 100 mls/ hr IV Q6H CHUCK Ondansetron HCl (Zofran) 4 mg IV Q4H PRN PRN Reason: Nausea/Vomiting Potassium Chloride (Klor-Con M20) 40 meq PO BID CHUCK Stop: 07/25/19 09:00 Sodium Chloride (Saline Flush) 10 ml FLUSH ASDIRECTED PRN PRN Reason: Keep Vein Open Last Admin: 07/23/19 04:04 Dose: 10 ml Sodium Chloride (Saline Flush) 10 ml FLUSH ASDIRECTED PRN PRN Reason: Keep Vein Open Labs: Laboratory Tests 07/23/19 07/23/19 07/23/19 Range/Units 04:30 04:30 04:30 WBC 13.9 H (4.5-12.0) X10-3/uL RBC 5.07 (3.23-5.20) x10(6)uL Hgb 13.7 (11.5-15.5) g/dL Hct 42.5 (30.0-51.3) % MCV 83.7 (80-96) fL MCH 26.9 L (27.7-33.6) pg MCHC 32.1 L (32.2-35.4) g/dL RDW 20.3 H (11.5-15.5) % Plt Count 570 H (125-369) X10(3)uL MPV 7.4 (7.4-10.4) fL Add Manual Diff Yes Neutrophils % (Manual) 70 (46-82) % Band Neutrophils % 7 H (0-6) % Lymphocytes % (Manual) 10 L (13-37) % Monocytes % (Manual) 7 (4-12) % Eosinophils % (Manual) 6 H (0-5) % PT 11.9 H (9.0-11.1) sec INR 1.25 H (1.00-1.24) ABG pH (7.35-7.45) ABG pCO2 (35-45) mmHg ABG pO2 (83-108) mmHg ABG HCO3 (22-26) mmol/L ABG O2 Saturation (96-97) % ABG Base Excess (-2-2) Gonzales Test O2 Delivery Device Sodium 135 (135-145) mmol/L Potassium 3.2 L (3.5-5.3) mmol/L Chloride 92 L D (100-110) mmol/L Carbon Dioxide 26 (21-32) mmol/L BUN 21 H D (7-18) mg/dL Creatinine 0.7 (0.55-1.02) mg/dL Est Cr Clr Drug Dosing TNP Estimated GFR (MDRD) > 60 (>60) BUN/Creatinine Ratio 30.0 H (9-20) Glucose 158 H (80-116) mg/dL Lactic Acid (0.4-2.0) mmol/L Calcium 8.3 L (8.6-10.2) mg/dL Total Bilirubin 0.9 (0.1-1.3) mg/dL AST 16 (5-25) IU/L ALT 13 D (12-36) U/L Alkaline Phosphatase 101 (56-112) IU/L Troponin I (4.0-60.3) pg/mL NT-Pro-B Natriuret Pep (<=450) pg/mL Total Protein 7.3 (6.0-8.0) g/dL Albumin 2.8 L (3.2-4.6) g/dL Globulin 4.5 g/dL Albumin/Globulin Ratio 0.6 Urine Color (YELLOW) Urine Appearance (CLEAR) Urine pH (5.0-6.5) Ur Specific [place] (1.010-1.025) Urine Protein (NEGATIVE) mg/dL Urine Glucose (UA) (NORMAL) mg/dL Urine Ketones (NEGATIVE) mg/dL Urine Occult Blood (NEGATIVE) Urine Nitrite (NEGATIVE) Urine Bilirubin (NEGATIVE) Urine Urobilinogen (NEGATIVE) mg/dL Ur Leukocyte Esterase (NEGATIVE) Urine RBC (0-5) Urine WBC (0-5) Ur Squamous Epith Cells (NS,R,O) Urine Bacteria (NS) 07/23/19 07/23/19 07/23/19 Range/Units 04:30 04:30 04:30 WBC (4.5-12.0) X10-3/uL RBC (3.23-5.20) x10(6)uL Hgb (11.5-15.5) g/dL Hct (30.0-51.3) % MCV (80-96) fL MCH (27.7-33.6) pg MCHC (32.2-35.4) g/dL RDW (11.5-15.5) % Plt Count (125-369) X10(3)uL MPV (7.4-10.4) fL Add Manual Diff Neutrophils % (Manual) (46-82) % Band Neutrophils % (0-6) % Lymphocytes % (Manual) (13-37) % Monocytes % (Manual) (4-12) % Eosinophils % (Manual) (0-5) % PT (9.0-11.1) sec INR (1.00-1.24) ABG pH 7.47 H (7.35-7.45) ABG pCO2 32 L (35-45) mmHg ABG pO2 108 (83-108) mmHg ABG HCO3 23 (22-26) mmol/L ABG O2 Saturation 99 H (96-97) % ABG Base Excess 0.7 (-2-2) Gonzales Test Passed O2 Delivery Device Nasal cannula Sodium (135-145) mmol/L Potassium (3.5-5.3) mmol/L Chloride (100-110) mmol/L Carbon Dioxide (21-32) mmol/L BUN (7-18) mg/dL Creatinine (0.55-1.02) mg/dL Est Cr Clr Drug Dosing Estimated GFR (MDRD) (>60) BUN/Creatinine Ratio (9-20) Glucose (80-116) mg/dL Lactic Acid 2.1 H* (0.4-2.0) mmol/L Calcium (8.6-10.2) mg/dL Total Bilirubin (0.1-1.3) mg/dL AST (5-25) IU/L ALT (12-36) U/L Alkaline Phosphatase (56-112) IU/L Troponin I 88.6 H* (4.0-60.3) pg/mL NT-Pro-B Natriuret Pep 1701 H* (<=450) pg/mL Total Protein (6.0-8.0) g/dL Albumin (3.2-4.6) g/dL Globulin g/dL Albumin/Globulin Ratio Urine Color (YELLOW) Urine Appearance (CLEAR) Urine pH (5.0-6.5) Ur Specific [place] (1.010-1.025) Urine Protein (NEGATIVE) mg/dL Urine Glucose (UA) (NORMAL) mg/dL Urine Ketones (NEGATIVE) mg/dL Urine Occult Blood (NEGATIVE) Urine Nitrite (NEGATIVE) Urine Bilirubin (NEGATIVE) Urine Urobilinogen (NEGATIVE) mg/dL Ur Leukocyte Esterase (NEGATIVE) Urine RBC (0-5) Urine WBC (0-5) Ur Squamous Epith Cells (NS,R,O) Urine Bacteria (NS) 07/23/19 Range/Units 04:59 WBC (4.5-12.0) X10-3/uL RBC (3.23-5.20) x10(6)uL Hgb (11.5-15.5) g/dL Hct (30.0-51.3) % MCV (80-96) fL MCH (27.7-33.6) pg MCHC (32.2-35.4) g/dL RDW (11.5-15.5) % Plt Count (125-369) X10(3)uL MPV (7.4-10.4) fL Add Manual Diff Neutrophils % (Manual) (46-82) % Band Neutrophils % (0-6) % Lymphocytes % (Manual) (13-37) % Monocytes % (Manual) (4-12) % Eosinophils % (Manual) (0-5) % PT (9.0-11.1) sec INR (1.00-1.24) ABG pH (7.35-7.45) ABG pCO2 (35-45) mmHg ABG pO2 (83-108) mmHg ABG HCO3 (22-26) mmol/L ABG O2 Saturation (96-97) % ABG Base Excess (-2-2) Gonzales Test O2 Delivery Device Sodium (135-145) mmol/L Potassium (3.5-5.3) mmol/L Chloride (100-110) mmol/L Carbon Dioxide (21-32) mmol/L BUN (7-18) mg/dL Creatinine (0.55-1.02) mg/dL Est Cr Clr Drug Dosing Estimated GFR (MDRD) (>60) BUN/Creatinine Ratio (9-20) Glucose (80-116) mg/dL Lactic Acid (0.4-2.0) mmol/L Calcium (8.6-10.2) mg/dL Total Bilirubin (0.1-1.3) mg/dL AST (5-25) IU/L ALT (12-36) U/L Alkaline Phosphatase (56-112) IU/L Troponin I (4.0-60.3) pg/mL NT-Pro-B Natriuret Pep (<=450) pg/mL Total Protein (6.0-8.0) g/dL Albumin (3.2-4.6) g/dL Globulin g/dL Albumin/Globulin Ratio Urine Color Yellow (YELLOW) Urine Appearance Clear (CLEAR) Urine pH 6.0 (5.0-6.5) Ur Specific [place] 1.015 (1.010-1.025) Urine Protein Negative (NEGATIVE) mg/dL Urine Glucose (UA) Normal (NORMAL) mg/dL Urine Ketones 50 H (NEGATIVE) mg/dL Urine Occult Blood Negative (NEGATIVE) Urine Nitrite Negative (NEGATIVE) Urine Bilirubin Small H (NEGATIVE) Urine Urobilinogen 1 H (NEGATIVE) mg/dL Ur Leukocyte Esterase Negative (NEGATIVE) Urine RBC 0-5 (0-5) Urine WBC 0-5 (0-5) Ur Squamous Epith Cells Occasional (NS,R,O) Urine Bacteria Few H (NS) Meds: Medications Generic Name Dose Route Start Last Admin Trade Name Freq PRN Reason Stop Dose Admin Acetaminophen 650 mg 07/23/19 05:47 Tylenol PO Q4H PRN Pain (Mild 1-3)/fever Albuterol 2.5 mg 07/23/19 05:57 Proventil Neb Soln NEB Q1H PRN Dyspnea Albuterol/Ipratropium 3 ml 07/23/19 06:00 Duoneb 3.0-0.5 Mg/3 Ml NEB Q6H CHUCK Docusate Sodium 100 mg 07/23/19 05:47 Colace PO BID PRN Constipation Piperacillin Sod/Tazobactam 50 mls @ 100 mls/hr 07/23/19 06:15 Sod 3.375 gm/ Sodium Chloride IV Q6H CHUCK Ondansetron HCl 4 mg 07/23/19 05:47 Zofran IV Q4H PRN Nausea/Vomiting Potassium Chloride 40 meq 07/23/19 09:00 Klor-Con M20 PO 07/25/19 09:00 BID CHUCK Sodium Chloride 10 ml 07/23/19 03:53 07/23/19 04:04 Saline Flush FLUSH 10 ml ASDIRECTED PRN Administration Keep Vein Open Sodium Chloride 10 ml 07/23/19 05:47 Saline Flush FLUSH ASDIRECTED PRN Keep Vein Open Discontinued Medications Generic Name Dose Route Start Last Admin Trade Name Freq PRN Reason Stop Dose Admin Albuterol/Ipratropium 6 ml 07/23/19 03:56 07/23/19 04:03 Duoneb 3.0-0.5 Mg/3 Ml NEB 07/23/19 03:57 6 ml ONETIME ONE Administration Ceftriaxone Sodium 1 gm/ 50 mls @ 200 mls/hr 07/23/19 06:15 Sodium Chloride IV Q24H [facility] Methylprednisolone Sodium Succinate 125 mg 07/23/19 03:58 07/23/19 04:04 Solu-Medrol IVPUSH 07/23/19 03:59 125 mg ONETIME ONE Administration Morphine Sulfate 4 mg 07/23/19 03:56 07/23/19 04:03 Morphine IVPUSH 07/23/19 03:57 4 mg ONETIME ONE Administration Departure - Departure Time of Disposition: 05:00 Disposition: Admitted As Inpatient 68 Condition: Good Clinical Impression: Pneumonia, COPD (chronic obstructive pulmonary disease), H/O: lung cancer, Hypokalemia, CHF (congestive heart failure), Elevated troponin - Discharge Information Sepsis Event Note - Evaluation Sepsis Screening Result: Possible Sepsis Risk - Focused Exam Vital Signs: Vital Signs Temp Pulse Resp BP Pulse Ox 07/23/19 03:50 37.1 C 110 H 30 H 137/93 H 86 L Date Exam was Performed: 07/23/19 Time Exam was Performed: 06:14 - My Orders Last 24 Hours: My Active Orders 07/23/19 03:53 Chest 1V Frontal [CR] Stat Sodium Chloride 0.9% [Saline Flush] 10 ml FLUSH ASDIRECTED PRN Saline Lock Insert [OM.PC] Routine EKG 12 Lead [EK] Routine 07/23/19 03:55 EKG Documentation Completion [RC] ASDIRECTED 07/23/19 03:57 RT Aerosol Therapy [RC] ASDIRECTED 07/23/19 05:15 Insert Urinary Catheter [OM.PC] Q24H 07/23/19 05:47 Blood Glucose Check, Bedside [RC] BIDMEALS Up With Assistance [RC] ASDIRECTED Acetaminophen [Tylenol] 650 mg PO Q4H PRN Docusate Sodium [Colace] 100 mg PO BID PRN Ondansetron [Zofran] 4 mg IV Q4H PRN Sodium Chloride 0.9% [Saline Flush] 10 ml FLUSH ASDIRECTED PRN Saline Lock Insert [OM.PC] Routine Resuscitation Status Routine 07/23/19 05:48 Patient Status [ADT] Routine Oxygen Therapy [RC] PRN VTE/DVT Education [RC] Per Unit Routine Vital Signs [RC] Q4H 07/23/19 05:50 Cardiac Monitoring [RC] CONTINUOUS Pulse Oximetry [RC] CONTINUOUS 07/23/19 05:57 Albuterol [Proventil Neb Soln] 2.5 mg NEB Q1H PRN 07/23/19 05:59 RT Aerosol Therapy [RC] ASDIRECTED 07/23/19 06:00 CULTURE BLOOD [BC] Routine CULTURE BLOOD [BC] Routine CULTURE SPUTUM + SMEAR [RM] Routine INR,PT,PROTHROMBIN TIME [COAG] DAILY Albuterol/Ipratropium [DuoNeb 3.0-0.5 MG/3 ML] 3 ml NEB Q6H Blood Culture x2 Reflex Set [OM.PC] ONETIME 07/23/19 09:00 Potassium Chloride [Klor-Con M20] 40 meq PO BID 07/23/19 Breakfast Heart Healthy Diet [DIET] - Assessment/Plan Last 24 Hours: My Active Orders 07/23/19 03:53 Chest 1V Frontal [CR] Stat Sodium Chloride 0.9% [Saline Flush] 10 ml FLUSH ASDIRECTED PRN Saline Lock Insert [OM.PC] Routine EKG 12 Lead [EK] Routine 07/23/19 03:55 EKG Documentation Completion [RC] ASDIRECTED 07/23/19 03:57 RT Aerosol Therapy [RC] ASDIRECTED 07/23/19 05:15 Insert Urinary Catheter [OM.PC] Q24H 07/23/19 05:47 Blood Glucose Check, Bedside [RC] BIDMEALS Up With Assistance [RC] ASDIRECTED Acetaminophen [Tylenol] 650 mg PO Q4H PRN Docusate Sodium [Colace] 100 mg PO BID PRN Ondansetron [Zofran] 4 mg IV Q4H PRN Sodium Chloride 0.9% [Saline Flush] 10 ml FLUSH ASDIRECTED PRN Saline Lock Insert [OM.PC] Routine Resuscitation Status Routine 07/23/19 05:48 Patient Status [ADT] Routine Oxygen Therapy [RC] PRN VTE/DVT Education [RC] Per Unit Routine Vital Signs [RC] Q4H 07/23/19 05:50 Cardiac Monitoring [RC] CONTINUOUS Pulse Oximetry [RC] CONTINUOUS 07/23/19 05:57 Albuterol [Proventil Neb Soln] 2.5 mg NEB Q1H PRN 07/23/19 05:59 RT Aerosol Therapy [RC] ASDIRECTED 07/23/19 06:00 CULTURE BLOOD [BC] Routine CULTURE BLOOD [BC] Routine CULTURE SPUTUM + SMEAR [RM] Routine INR,PT,PROTHROMBIN TIME [COAG] DAILY Albuterol/Ipratropium [DuoNeb 3.0-0.5 MG/3 ML] 3 ml NEB Q6H Blood Culture x2 Reflex Set [OM.PC] ONETIME 07/23/19 09:00 Potassium Chloride [Klor-Con M20] 40 meq PO BID 07/23/19 Breakfast Heart Healthy Diet [DIET]
[2019-07-23 06:43] VITALS: BP 112/76; PULSE 104
[2019-07-23] MEDS ORDERED: Potassium Chloride 20 MEQ Tab.ER PO SCH (09:00)
--- NOTE | 2019-07-23 13:12 | PCM.DCSUM1 ---
Discharge Summary - Hospital Course HPI Initial Comments: Patient presented to the ED via EMS because of increasing dyspnea for 3 days. There is also increase in coughing productive of yellowish white sputum. There is no associated fever or chills. She used her neb at home which didn't provide significant relief of her dyspnea. She has a history of COPD and Lung CA s/p left lung resection in 2005. She still smokes 1/2 PPD. She is a hospice patient that called ambulance instead of Hospice nurse and her hospice status was not communicated to ER physician. Family reported that she refuses some of the Morphine and other hospice medications for fear of becoming addicted. Catherine her hospice nurse updated her medication list and states she is not on oxygen at home. Diagnosis: Stroke: No - Discharge Data Discharge Date: 07/23/19 Discharge Disposition: DC/Tfer to Hospice-Med Fac 51 Condition: Poor - Referral to Home Health Date of Face to Face Encounter: 07/23/19 Reason for Homebound Status: hospice patient Primary Care Physician: PCP None Skilled Need: Resume hospice orders. - Patient Summary/Data Hospital Course: Once Lucille reached the med/surg floor family informed nursing that she was on hospice, spoke with patient who stated she thought she was at home and wanted to continue hospice care. Spoke with Catherine her hospice nurse, who gave me updated medication list and that she was not on home oxygen in part that she sats in the 90s and her and her family all chain smoke. Patient discharged to home, resume previous hospice orders. Her daughter is transporting her home. - Patient Instructions Diet: Usual Diet as Tolerated Other/Special Instructions: Resume previous Hospice orders. - Discharge Plan *PRESCRIPTION DRUG MONITORING PROGRAM REVIEWED*: No *COPY OF PRESCRIPTION DRUG MONITORING REPORT IN PATIENT DAMASO: No Prescriptions/Med Rec: Hyoscyamine [Hyomax-SL] 0.125 mg SL Q4H PRN 30 Days #30 tab.sl PRN Reason: Other LORazepam [LORazepam Intensol] 0.5 mg PO Q4H PRN 30 Days #1 bottle PRN Reason: Anxiety Morphine 7.5 mg PO Q4H PRN 30 Days #30 tab PRN Reason: Pain Home Medications: Home Meds Propranolol [Inderal LA] 120 mg PO BEDTIME 02/12/13 [History] hydroCHLOROthiazide [Hydrochlorothiazide] 25 mg PO DAILY 02/12/13 [History] metFORMIN [Glucophage] 500 mg PO DAILY 02/12/13 [History] Ondansetron [Zofran ODT] 4 mg PO Q6H PRN 06/15/13 [History] Diclofenac Sodium [Voltaren] 4 gm TOP QID PRN 12/05/15 [History] Naproxen Sodium [Aleve] 440 mg PO TID PRN 10/01/18 [History] Albuterol [Proventil Neb Soln] 3 ml INH Q4H PRN 04/12/19 [History] Diltiazem [Cardizem CD] 120 mg PO DAILY 04/12/19 [History] Docusate Sodium 100 mg PO BID 04/12/19 [History] Sertraline [Zoloft] 75 mg PO DAILY 04/12/19 [History] Tiotropium [Spiriva HandiHaler] 18 mcg IH DAILY 04/12/19 [History] Acetaminophen/HYDROcodone [[place] 325-5 MG] 1 tab PO Q4H PRN #14 tab 05/17/19 [Rx ] Hyoscyamine [Hyomax-SL] 0.125 mg SL Q4H PRN 30 Days #30 tab.sl 07/23/19 [Rx] LORazepam [LORazepam Intensol] 0.5 mg PO Q4H PRN 30 Days #1 bottle 07/23/19 [Rx] Morphine 7.5 mg PO Q4H PRN 30 Days #30 tab 07/23/19 [Rx] Oxygen Therapy Mode: Room Air Patient Handouts: Fall Prevention in Hospitals, Adult, Hospice Forms: ED Department Discharge Referrals: Dante Keith MD [Physician] - - Discharge Summary/Plan Comment DC Time >30 min.: No - General Info Date of Service: 07/23/19 Admission Dx/Problem (Free Text: patient states this morning that she thought she was at home. She wishes to continue hospice care and discussed that morphine and ativan will help her with the shortness of breath feeling. 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 Down to 80 pounds, not eating and drinking. She has been on hospice for 2 months. - Patient Data Vitals - Most Recent: Last Vital Signs Temp 97.8 F 07/23/19 06:30 Pulse 104 H 07/23/19 06:30 Resp 20 07/23/19 06:30 BP 112/76 07/23/19 06:30 Pulse Ox 94 L 07/23/19 06:30 Weight - Most Recent: 78 lb 4 oz Lab Results - Last 24 hrs: Laboratory Results - last 24 hr 07/23/19 07/23/19 07/23/19 Range/Units 04:30 04:30 04:30 WBC 13.9 H (4.5-12.0) X10-3/uL RBC 5.07 (3.23-5.20) x10(6)uL Hgb 13.7 (11.5-15.5) g/dL Hct 42.5 (30.0-51.3) % MCV 83.7 (80-96) fL MCH 26.9 L (27.7-33.6) pg MCHC 32.1 L (32.2-35.4) g/dL RDW 20.3 H (11.5-15.5) % Plt Count 570 H (125-369) X10(3)uL MPV 7.4 (7.4-10.4) fL Add Manual Diff Yes Neutrophils % (Manual) 70 (46-82) % Band Neutrophils % 7 H (0-6) % Lymphocytes % (Manual) 10 L (13-37) % Monocytes % (Manual) 7 (4-12) % Eosinophils % (Manual) 6 H (0-5) % PT 11.9 H (9.0-11.1) sec INR 1.25 H (1.00-1.24) ABG pH (7.35-7.45) ABG pCO2 (35-45) mmHg ABG pO2 (83-108) mmHg ABG HCO3 (22-26) mmol/L ABG O2 Saturation (96-97) % ABG Base Excess (-2-2) Gonzales Test O2 Delivery Device Sodium 135 (135-145) mmol/L Potassium 3.2 L (3.5-5.3) mmol/L Chloride 92 L D (100-110) mmol/L Carbon Dioxide 26 (21-32) mmol/L BUN 21 H D (7-18) mg/dL Creatinine 0.7 (0.55-1.02) mg/dL Est Cr Clr Drug Dosing TNP Estimated GFR (MDRD) > 60 (>60) BUN/Creatinine Ratio 30.0 H (9-20) Glucose 158 H (80-116) mg/dL Lactic Acid (0.4-2.0) mmol/L Calcium 8.3 L (8.6-10.2) mg/dL Total Bilirubin 0.9 (0.1-1.3) mg/dL AST 16 (5-25) IU/L ALT 13 D (12-36) U/L Alkaline Phosphatase 101 (56-112) IU/L Troponin I (4.0-60.3) pg/mL NT-Pro-B Natriuret Pep (<=450) pg/mL Total Protein 7.3 (6.0-8.0) g/dL Albumin 2.8 L (3.2-4.6) g/dL Globulin 4.5 g/dL Albumin/Globulin Ratio 0.6 Urine Color (YELLOW) Urine Appearance (CLEAR) Urine pH (5.0-6.5) Ur Specific [place] (1.010-1.025) Urine Protein (NEGATIVE) mg/dL Urine Glucose (UA) (NORMAL) mg/dL Urine Ketones (NEGATIVE) mg/dL Urine Occult Blood (NEGATIVE) Urine Nitrite (NEGATIVE) Urine Bilirubin (NEGATIVE) Urine Urobilinogen (NEGATIVE) mg/dL Ur Leukocyte Esterase (NEGATIVE) Urine RBC (0-5) Urine WBC (0-5) Ur Squamous Epith Cells (NS,R,O) Urine Bacteria (NS) 07/23/19 07/23/19 07/23/19 Range/Units 04:30 04:30 04:30 WBC (4.5-12.0) X10-3/uL RBC (3.23-5.20) x10(6)uL Hgb (11.5-15.5) g/dL Hct (30.0-51.3) % MCV (80-96) fL MCH (27.7-33.6) pg MCHC (32.2-35.4) g/dL RDW (11.5-15.5) % Plt Count (125-369) X10(3)uL MPV (7.4-10.4) fL Add Manual Diff Neutrophils % (Manual) (46-82) % Band Neutrophils % (0-6) % Lymphocytes % (Manual) (13-37) % Monocytes % (Manual) (4-12) % Eosinophils % (Manual) (0-5) % PT (9.0-11.1) sec INR (1.00-1.24) ABG pH 7.47 H (7.35-7.45) ABG pCO2 32 L (35-45) mmHg ABG pO2 108 (83-108) mmHg ABG HCO3 23 (22-26) mmol/L ABG O2 Saturation 99 H (96-97) % ABG Base Excess 0.7 (-2-2) Gonzales Test Passed O2 Delivery Device Nasal cannula Sodium (135-145) mmol/L Potassium (3.5-5.3) mmol/L Chloride (100-110) mmol/L Carbon Dioxide (21-32) mmol/L BUN (7-18) mg/dL Creatinine (0.55-1.02) mg/dL Est Cr Clr Drug Dosing Estimated GFR (MDRD) (>60) BUN/Creatinine Ratio (9-20) Glucose (80-116) mg/dL Lactic Acid 2.1 H* (0.4-2.0) mmol/L Calcium (8.6-10.2) mg/dL Total Bilirubin (0.1-1.3) mg/dL AST (5-25) IU/L ALT (12-36) U/L Alkaline Phosphatase (56-112) IU/L Troponin I 88.6 H* (4.0-60.3) pg/mL NT-Pro-B Natriuret Pep 1701 H* (<=450) pg/mL Total Protein (6.0-8.0) g/dL Albumin (3.2-4.6) g/dL Globulin g/dL Albumin/Globulin Ratio Urine Color (YELLOW) Urine Appearance (CLEAR) Urine pH (5.0-6.5) Ur Specific [place] (1.010-1.025) Urine Protein (NEGATIVE) mg/dL Urine Glucose (UA) (NORMAL) mg/dL Urine Ketones (NEGATIVE) mg/dL Urine Occult Blood (NEGATIVE) Urine Nitrite (NEGATIVE) Urine Bilirubin (NEGATIVE) Urine Urobilinogen (NEGATIVE) mg/dL Ur Leukocyte Esterase (NEGATIVE) Urine RBC (0-5) Urine WBC (0-5) Ur Squamous Epith Cells (NS,R,O) Urine Bacteria (NS) 04/07/23/19 07/23/19 Range/Units 04:59 09:30 09:30 WBC (4.5-12.0) X10-3/uL RBC (3.23-5.20) x10(6)uL Hgb (11.5-15.5) g/dL Hct (30.0-51.3) % MCV (80-96) fL MCH (27.7-33.6) pg MCHC (32.2-35.4) g/dL RDW (11.5-15.5) % Plt Count (125-369) X10(3)uL MPV (7.4-10.4) fL Add Manual Diff Neutrophils % (Manual) (46-82) % Band Neutrophils % (0-6) % Lymphocytes % (Manual) (13-37) % Monocytes % (Manual) (4-12) % Eosinophils % (Manual) (0-5) % PT (9.0-11.1) sec INR (1.00-1.24) ABG pH (7.35-7.45) ABG pCO2 (35-45) mmHg ABG pO2 (83-108) mmHg ABG HCO3 (22-26) mmol/L ABG O2 Saturation (96-97) % ABG Base Excess (-2-2) Gonzales Test O2 Delivery Device Sodium (135-145) mmol/L Potassium (3.5-5.3) mmol/L Chloride (100-110) mmol/L Carbon Dioxide (21-32) mmol/L BUN (7-18) mg/dL Creatinine (0.55-1.02) mg/dL Est Cr Clr Drug Dosing Estimated GFR (MDRD) (>60) BUN/Creatinine Ratio (9-20) Glucose (80-116) mg/dL Lactic Acid 1.5 (0.4-2.0) mmol/L Calcium (8.6-10.2) mg/dL Total Bilirubin (0.1-1.3) mg/dL AST (5-25) IU/L ALT (12-36) U/L Alkaline Phosphatase (56-112) IU/L Troponin I 76.1 H* (4.0-60.3) pg/mL NT-Pro-B Natriuret Pep (<=450) pg/mL Total Protein (6.0-8.0) g/dL Albumin (3.2-4.6) g/dL Globulin g/dL Albumin/Globulin Ratio Urine Color Yellow (YELLOW) Urine Appearance Clear (CLEAR) Urine pH 6.0 (5.0-6.5) Ur Specific [place] 1.015 (1.010-1.025) Urine Protein Negative (NEGATIVE) mg/dL Urine Glucose (UA) Normal (NORMAL) mg/dL Urine Ketones 50 H (NEGATIVE) mg/dL Urine Occult Blood Negative (NEGATIVE) Urine Nitrite Negative (NEGATIVE) Urine Bilirubin Small H (NEGATIVE) Urine Urobilinogen 1 H (NEGATIVE) mg/dL Ur Leukocyte Esterase Negative (NEGATIVE) Urine RBC 0-5 (0-5) Urine WBC 0-5 (0-5) Ur Squamous Epith Cells Occasional (NS,R,O) Urine Bacteria Few H (NS) Med Orders - Current: Current Medications Discontinued Medications Acetaminophen (Tylenol) 650 mg PO Q4H PRN PRN Reason: Pain (Mild 1-3)/fever Albuterol (Proventil Neb Soln) 2.5 mg NEB Q1H PRN PRN Reason: Dyspnea Albuterol/Ipratropium (Duoneb 3.0-0.5 Mg/3 Ml) 6 ml NEB ONETIME ONE Stop: 07/23/19 03:57 Last Admin: 07/23/19 04:03 Dose: 6 ml Albuterol/Ipratropium (Duoneb 3.0-0.5 Mg/3 Ml) 3 ml NEB Q6H [facility] Last Admin: 07/23/19 07:29 Dose: Not Given Docusate Sodium (Colace) 100 mg PO BID PRN PRN Reason: Constipation Ceftriaxone Sodium 1 gm/ (Sodium Chloride) 50 mls @ 200 mls/hr IV Q24H [facility] Methylprednisolone Sodium Succinate (Solu-Medrol) 125 mg IVPUSH ONETIME ONE Stop: 07/23/19 03:59 Last Admin: 07/23/19 04:04 Dose: 125 mg Morphine Sulfate (Morphine) 4 mg IVPUSH ONETIME ONE Stop: 07/23/19 03:57 Last Admin: 07/23/19 04:03 Dose: 4 mg Ondansetron HCl (Zofran) 4 mg IV Q4H PRN PRN Reason: Nausea/Vomiting Potassium Chloride (Klor-Con M20) 40 meq PO BID [facility] Stop: 07/25/19 09:00 Last Admin: 07/23/19 11:18 Dose: Not Given Sodium Chloride (Saline Flush) 10 ml FLUSH ASDIRECTED PRN PRN Reason: Keep Vein Open Last Admin: 07/23/19 04:04 Dose: 10 ml Sodium Chloride (Saline Flush) 10 ml FLUSH ASDIRECTED PRN PRN Reason: Keep Vein Open - Exam General: Reports: Cooperative, Mild Distress Lungs: Reports: Decreased Breath Sounds, Crackles (Left lung), Other (absent breath sounds on right). Denies: Wheezing Cardiovascular: Reports: Tachycardia GI/Abdominal Exam: Soft, Non-Tender, No Distention (hypoactive), Abnormal Bowel Sounds Extremities: No Pedal Edema
--- NOTE | 2019-07-23 14:41 | CR ---
INDICATION: Dyspnea. CHEST ONE VIEW: Portable AP upright view of the chest was obtained 07/23/19 and compared with 05/11/19 and 04/12/19, again revealing post right pneumonectomy change with shift of midline structures to the right; hyperaeration of the left lung is also noted. In the perihilar area on the left, there is a nodular density which most likely presents a metastatic deposit but could represent an abscess measuring approximately 49 mm. There may be some minimal infiltrate inferior to that area. No definite pleural effusion was seen. Overlying EKG leads and snaps are noted. IMPRESSION: 1. Nodular appearing mass, almost 5 cm, lateral to the hilum in the left lung likely representing a metastatic deposit in this patient with history of lung CA. Round pneumonia could also be present - correlate clinically. 2. Hyperaeration of the left lung subsequent to pneumonectomy on the right. 3. Difficult to exclude minimal patchy pneumonia at the left lower lung field. MTDD
== END 2019-07-23 10:53 | disposition hospice, inpatient (51) ==
LOC: FB.ED 03:46 → FB.MS 05:59 → UNDOADMOB 05:59 → INTOOBSV 05:59 → FB.MS 10:18
PROVIDERS: ADMIT Emergency Medicine; ATTEND Family Medicine
DX: J44.0 Chronic obstructive pulmonary disease with (acute) lower respiratory infection (principal); J18.9 Pneumonia, unspecified organism; E87.6 Hypokalemia; R79.89 Other specified abnormal findings of blood chemistry; I11.0 Hypertensive heart disease with heart failure; I50.9 Heart failure, unspecified; F41.9 Anxiety disorder, unspecified; F32.9 Major depressive disorder, single episode, unspecified; E78.00 Pure hypercholesterolemia, unspecified; F17.210 Nicotine dependence, cigarettes, uncomplicated; E11.36 Type 2 diabetes mellitus with diabetic cataract; H26.9 Unspecified cataract; Z90.2 Acquired absence of lung [part of]; Z85.118 Personal history of other malignant neoplasm of bronchus and lung; Z79.01 Long term (current) use of anticoagulants; Z79.84 Long term (current) use of oral hypoglycemic drugs; Z79.899 Other long term (current) drug therapy
CPT/HCPCS: 36415; 36600; 71045; 80053; 81001; 82803; 83605; 83880; 84484; 85025; 85610; 87040; 93005; 94760; 96374; 96375; 99285; 99285-25; G0378; J2270; J2930; J7620-GY